=== PATIENT | female | born 1955 | race Caucasian/White ===

== ENCOUNTER 2025-07-02 12:20 | Observation (INO) | payer MEDICARE, SELFPAY ==
[2025-07-02] VITALS (9 sets, daily range): BP systolic 142–185; BP diastolic 81–138; PULSE 58–130; RESP 16–20; TEMP 36.5–36.8; O2SAT 96–98; BMI 34.8; BMI 34.0
--- NOTE | 2025-07-02 12:39 | EKG12_ITS ---
Test Reason : Blood Pressure : */* mmHG Vent. Rate : 85 BPM Atrial Rate : 264 BPM P-R Int : * ms QRS Dur : 84 ms QT Int : 390 ms P-R-T Axes : * 24 36 degrees QTcB Int : 464 ms Atrial flutter with variable A-V block Septal infarct , age undetermined Abnormal ECG Confirmed by LIONEL LOMELI, EVER ([id number]), photo editor DILIP ROBIN ([id number]) on 07/04/2025 10:32:22 AM Referred By: TB Confirmed By: EVER FLOWERS MD
[2025-07-02 13:05] LABS: Hematocrit 41.4 % (37-47); Hemoglobin 13.8 g/dL (12.0-15.0); Immature Granulocytes Count 0.020 X10^3/uL (0.0-0.0); Mean Corp Hgb Conc 33.3 g/dL (32-36); Mean Corpuscular Volume 91.4 fL (81-99); Mean Platelet Vol. 10.7 fl (6.2-12.0); NRBC Flagged by Analyzer 0 % (0-5); Platelet Count 319 K/mm3 (150-450); RBC Distribution Width CV 13.2 % (11.6-14.6); RBC Distribution Width SD 43.8 fl (35.1-43.9); Red Blood Count 4.53 M/mm3 (4.2-5.4); White Blood Count 6.5 K/mm3 (4.4-11.0)
--- NOTE | 2025-07-02 13:10 | RAD_ITS ---
PROCEDURE: CHEST PA AND LATERAL 07/02/2025 REASON FOR EXAM: A.FIB TECHNIQUE: Procedure Code: RADCXR Modality: DX Procedure: CHEST PA AND LATERAL COMPARISON: None FINDINGS: Hardware: None Heart: Normal Mediastinum: Mild aortic atherosclerosis. Lungs: Subsegmental atelectasis left lung base. No consolidation. No pleural effusion or pneumothorax. Bones: Exaggeration of the thoracic kyphosis. Mild anterior wedging mid and lower thoracic vertebral bodies with some disc space narrowing and marginal endplate spurring. RAD/Chest PA and Lateral IMPRESSION: Exaggeration of the thoracic kyphosis. Subsegmental atelectasis left lung base . Reading Location: [id number]
--- NOTE | 2025-07-02 13:10 | RAD_ITS ---
PROCEDURE: HIP, UNI W/ PELVIS 2-3 VIEWS 07/02/2025 REASON FOR EXAM: PAIN, RECENT HIP FX TECHNIQUE: Procedure Code: RAD Modality: DX Procedure: HIP, UNI W/ PELVIS 2-3 VIEWS Laterality: Left COMPARISON: None FINDINGS: Bones: 3 screws are present within the left femoral neck and head. No hardware failure or loosening seen. No new fracture seen. Joints: Mild degenerative changes lower lumbar spine, left SI joint and bilateral hip joints. Soft tissues: Surgical clips overlying the left pelvis. RAD/HIP, UNI W/ Pelvis 2-3 Views IMPRESSION: No acute abnormality. Reading Location: [id number]
[2025-07-02 13:14] LABS: Prothrombin Time (Protime)PT. 13.7 SECONDS (11.7-14.9)
[2025-07-02 13:15] LABS: Partial Thromboplast Time 25.0 Seconds (24.1-36.2)
[2025-07-02 13:26] LABS: AST(SGOT) 30 U/L (<=31); Alanine Aminotransfer ALT/SGPT 15 U/L (<=34); Albumin, Serum 4.0 g/dL (3.4-4.8); Alkaline Phosphatase 174 U/L (35-104); Anion Gap 13 (5-15); BUN 16 mg/dL (4-19); BUN/Creat Ratio 27.9 RATIO (10-20); Calcium,Total 9.8 mg/dL (7.6-11.0); Carbon Dioxide 23.1 mmol/L (21.0-32.0); Chloride 105 mmol/L (98-108); Estimated Creatinine Clearance 92.11 ml/min (50-250); Globulin 3.0 g/dL (2.2-4.2); Glucose 92 mg/dL (70-99); Potassium 4.7 mmol/L (3.3-5.1)
[2025-07-02] MEDS: 0.9% Normal Saline (1000mL) 1,000 ML 999 ML IV (13:51)
[2025-07-02 13:59] LABS: Mucous, Urine 0 SEEN /hpf (<or=2+)
[2025-07-02 14:09] LABS: Color, Urine Straw (Yellow); Glucose, Dipstick Normal (Normal); Ketone-Dipstick Negative (Negative); Leukocyte Esterase-Dipstick Negative /ul (Negative); Nitrite-Dipstick Negative (Negative); Occult Blood-Urine 10 /ul (Negative); Protein-Dipstick 15 mg/dl (Negative); Specific Gravity, Urine 1.015 (1.002-1.030)
[2025-07-02 14:12] LABS: Urine Bilirubin Dipstick 1 mg/dL (Negative)
--- NOTE | 2025-07-02 14:18 | EX.ED.GENINJ ---
HPI History of Present Illness Chief Complaint: Other, Pain/Inj Narrative Narrative: Patient is a 69-year-old female with a past medical history of atrial fibrillation status post ablation on Eliquis who presents to the emergency department with a chief complaint of left hip and pelvis pain. States that while in [place] she had a fall she broke her left femur/hip which she had surgery for as well as her left arm. She states that while in the hospital there she noted that her A-fib started acting up again. She states that she has had worsening of groin pain therefore she came here to be further evaluated. Family member notes that she may need to be admitted for potential placement in rehab. Patient denies any blood clots states that her Eliquis was stopped for 3 days prior to and after surgery but states that she has resumed it and has not missed any doses since then. PFSH PFSH Allergy/AdvReac Type Severity Reaction Status Date / Time No Known Allergies Allergy Verified 07/02/25 12:27 Social History Smoking Status: Former smoker ROS ROS ED ROS Narrative Constitutional: Denies any fevers, chills, headaches, lightness, dizziness Eyes: Denies double vision changes in vision Cardiovascular: Denies chest pain or palpitation Respiratory: Denies coughing wheezing shortness of breath Abdomen: Denies abdominal pain nausea vomit diarrhea : Denies any urinary symptoms Neurological: Denies any numbness, weakness, tingling Musculoskeletal: Complains of left hip and pelvis pain Skin: States that she has bruising from her fall that is residual EXAM Physical Exam Narrative Exam Narrative: General: Patient was lying in bed rest comfortably do not appear to be acute distress Head: Atraumatic, normocephalic Eyes: PERRL bilateral, EOMI [place], no conjunctival injection noted Neck: Soft, supple, trachea midline Cardiovascular: Patient tachycardic with an irregular irregular rhythm no murmurs gallops rubs noted Respiratory: Clear to auscultation bilaterally Abdomen: Soft, nondistended, no tenderness palpation Musculoskeletal: Patient has mild tenderness to palpation over the left hip Extremities: Radial pulses +2/4 in the right upper extremity, +4/5 strength noted in the bilateral upper and lower extremities Neurological: Patient Susan knew that she was at [facility] year is 2024 sensation grossly intact Skin: Patient has ecchymosis noted on the left side of her face as well as hematoma above her left eyebrow, surgical incision of her left hip appears to be healing well. Const Vital Signs: 07/02/25 12:23 07/02/25 12:23 07/02/25 12:37 Temperature 97.7 F L Temperature Source Temporal Pulse Rate 130 H Respiratory Rate 20 H Respiratory Effort Normal Respiratory Pattern Normal Blood Pressure 185/138 H 153/89 H Blood Pressure Mean 153 110 Pulse Ox 97 Oxygen Delivery Method Room Air 07/02/25 12:39 07/02/25 14:40 07/02/25 15:00 Temperature Temperature Source Pulse Rate 75 91 Respiratory Rate 16 19 H Respiratory Effort Respiratory Pattern Blood Pressure 154/85 H 142/88 H Blood Pressure Mean 108 106 Pulse Ox 97 97 97 Oxygen Delivery Method Room Air Room Air Room Air MDM MDM MDM Narrative Medical decision making narrative: Patient is a 69-year-old female who presented to the emergency department with a chief complaint of left hip pain and pelvis pain. On the differential diagnosis includes but not limited to pubic rami fracture, hip dislocation, periprosthetic fracture, pneumonia, PE although low suspicion for this as she is anticoagulated on Eliquis. Once workup is obtained reviewed she will be reevaluated. Patient is a CBC reviewed and showed no evidence leukocytosis white blood count was 6.5, he was 13.8, plate count 319. Patient INR normal at 1, PT 13.7. Patient sodium was 141, potassium was 4.7, creatinine 0.57. Patient lactic acid normal at 1.2, AST and ALT were 30 and 15 respectively. Patient's troponin was 14 with a delta troponin pending her EKG showed atrial flutter with variable block with a rate of 85 bpm. Patient's urinalysis reviewed and showed no evidence of infection. Patient's x-ray of her hip and pelvis reviewed by myself by radiology which showed no acute abnormalities noted. Patient chest x-ray reviewed by myself and by radiology which showed subsegmental atelectasis left lung base exaggeration of thoracic kyphosis. At 3:48 PM there is still no identifiable source infection therefore did not believe she warrants any antibiotics at this point time. Patient is requesting something for pain should be given Mccloud and Zofran. At this point time will discuss case with hospitalist for admission for PT/OT evaluation and possible placement for rehab. Patient's troponin came back it was normal at 14 with delta pending. Discussed this case with hospitalist Dr. Clay who accept patient for admission for PT OT evaluation and likely placement. Patient is agreeable to plan all questions were answered. Lab Data Labs: Laboratory Results - last 24 hr 07/02/25 07/02/25 12:55 13:50 WBC 6.5 RBC 4.53 Hgb 13.8 Hct 41.4 MCV 91.4 MCH 30.5 MCHC 33.3 RDW Std Deviation 43.8 RDW Coeff of Roseline 13.2 Plt Count 319 MPV 10.7 Immature Gran % (Auto) 0.300 Neut % (Auto) 66.1 Lymph % (Auto) 23.9 [place] % (Auto) 7.0 Eos % (Auto) 2.2 Baso % (Auto) 0.5 Absolute Neuts (auto) 4.3 Absolute Lymphs (auto) 1.54 Nucleated RBC % 0 PT 13.7 INR 1.0 APTT 25.0 Sodium 141 Potassium 4.7 Chloride 105 Carbon Dioxide 23.1 Anion Gap 13 BUN 16 Creatinine 0.57 L Estim Creat Clear Calc 92.11 Est GFR (MDRD) Non-Af 97 BUN/Creatinine Ratio 27.9 H Glucose 92 Lactic Acid 1.2 Calcium 9.8 Total Bilirubin 0.53 AST 30 ALT 15 Alkaline Phosphatase 174 H Troponin T High Sens 14 Total Protein 7.0 Albumin 4.0 Globulin 3.0 Albumin/Globulin Ratio 1.3 Urine Color Straw Urine Clarity Clear Urine pH 6.0 Ur Specific [place] 1.015 Urine Protein 15 H Urine Glucose (UA) Normal Urine Ketones Negative Urine Occult Blood 10 H Urine Nitrite Negative Urine Bilirubin 1 H Urine Urobilinogen Normal Ur Leukocyte Esterase Negative Urine RBC 0-5 SEEN Urine WBC 0-5 SEEN Ur Squamous Epith Cells 0-5 SEEN Urine Bacteria 0 SEEN Urine Mucus 0 SEEN Radiography Diagnostic Testing: Clinical Impression(s) from Imaging Studies Chest X-Ray 07/02/25 13:10 IMPRESSION: Exaggeration of the thoracic kyphosis. Subsegmental atelectasis left lung base. Reading Location: [id number] Hip/Pelvis X-Ray 07/02/25 13:10 IMPRESSION: No acute abnormality. Reading Location: [id number] Discharge Plan Dx/Rx/DC Orders Clinical Impression: Fall, Atrial fibrillation, Closed fracture of left hip, Distal radius fracture, left Disposition Disposition: Acute Care Hospital [facility]
[2025-07-02 14:40] LABS: Red Blood Cells-Urine 0-5 SEEN /hpf (0-5); Squamous Epithelial Cells - UA 0-5 SEEN /hpf (5-10)
[2025-07-02] MEDS: HYDROcodone Bitartrate/Apap 5/325 Tablet PO (15:26)
[2025-07-02 15:44] LABS: Troponin T High Sensitivity 14 ng/L (<=14)
[2025-07-02 16:09] LABS: Troponin T High Sens 2 HR 15 ng/L (<=14)
--- NOTE | 2025-07-02 16:22 | HP.PCM.HOS_ITS ---
HPI - General General Date of Admission: 07/02/25 Date of Service: 07/02/25 Chief Complaint: Left hip pain HPI Narrative ELENO KENNY, is a 69-year-old female history of A-fib status post ablation on Eliquis who presented to [facility] ED 07/02/2025 with left hip and pelvis pain. While in [place] she fell and broke her left femur/hip and had surgery for that. While in the hospital she had A-fib again as well. Patient now has had worsening of groin pain so she came to the ED to be evaluated. Family concerned that she needs admission for potential placement in rehab. In ED temp 97.7, heart rate initially 130 with repeat 75, blood pressure 185/138 and again with repeat down to 154/85, respiratory rate 20 pulse ox 97% on room air. CBC without any overt abnormalities, CMP with a BUN of 16, creatinine 0.57 and alk phos of 174. UA not suggestive of UTI, lactic acid normal. Chest x-ray with exaggeration of thoracic kyphosis and subsegmental atelectasis of left lung base. Hip and pelvis x-ray with no acute abnormalities. Given patient's pain and debility status post left arm and hip break hospitalist contacted for admission. Patient evaluated at bedside and reports that she fell in a restaurant in [place] and broke her left arm in 2 places as well as her femur, she had surgery on her femur 2 weeks ago tomorrow and was allowed to come home Monday because family had arrived and she wanted to be in her home state for further care. Patient arrived home yesterday and is brought here by family for placement. Reports having pain in her hip, more so anterior groin area, arm hurts as well. No headache or changes in vision. No chest pain or shortness of breath, bowels have been staying fairly regular despite taking as needed pain medication. PFSH Allergy/AdvReac Type Severity Reaction Status Date / Time No Known Allergies Allergy Verified 07/02/25 12:27 Social History Smoking Status: Former smoker ROS ROS Narrative General: Denies fever/chills HENT: Denies headache, denies stuffy nose, denies sore throat EYES: Denies acute changes in vision Resp: Denies cough, denies shortness of breath Cardiac: Denies chest pain GI: Denies abdominal pain, denies changes in bowel, denies nausea/vomiting : Denies changes in urination Extremity: Denies new swelling MSK: Pain in left anterior groin and arm Neuro: Denies any numbness/tingling Heme: Patient has residual bruising on face and forehead Skin: Denies rashes Psychiatric: No complaints voiced Vital Signs Vital Signs Vital Signs: 07/02/25 12:23 07/02/25 12:23 07/02/25 12:37 Temperature 97.7 F L Temperature Source Temporal Pulse Rate 130 H Respiratory Rate 20 H Respiratory Effort Normal Respiratory Pattern Normal Blood Pressure 185/138 H 153/89 H Blood Pressure Mean 153 110 Pulse Ox 97 Oxygen Delivery Method Room Air 07/02/25 12:39 07/02/25 14:40 07/02/25 15:00 Temperature Temperature Source Pulse Rate 75 91 Respiratory Rate 16 19 H Respiratory Effort Respiratory Pattern Blood Pressure 154/85 H 142/88 H Blood Pressure Mean 108 106 Pulse Ox 97 97 97 Oxygen Delivery Method Room Air Room Air Room Air Weight Weight: 116.5 kg Body Mass Index (BMI) 34.8 Physical Exam Narrative General: Alert, oriented, no apparent distress HEENT: Patient with healing bruising and protuberant area on left side of forehead Eyes: extraocular movements grossly intact Neck: Supple Respiratory: Clear to auscultation bilaterally, normal respiratory effort Cardiovascular: Regular rate and rhythm GI: Soft, nontender, nondistended Extremities: No edema Musculoskeletal: Moving all extremities Neuro: No overt focal neurological deficits Skin: No rashes appreciated Psych: Cooperative Results Lab / Micro Data 07/02/25 12:55 07/02/25 12:55 Labs: Laboratory Results - last 24 hr 07/02/25 12:55: WBC 6.5, RBC 4.53, Hgb 13.8, Hct 41.4, MCV 91.4, MCH 30.5, MCHC 33.3, RDW Std Deviation 43.8, RDW Coeff of Roseline 13.2, Plt Count 319, MPV 10.7, Immature Gran % (Auto) 0.300, Neut % (Auto) 66.1, Lymph % (Auto) 23.9, [place] % (Auto) 7.0, Eos % (Auto) 2.2, Baso % (Auto) 0.5, Absolute Neuts (auto) 4.3, Absolute Lymphs (auto) 1.54, Nucleated RBC % 0, PT 13.7, INR 1.0, APTT 25.0, Sodium 141, Potassium 4.7, Chloride 105, Carbon Dioxide 23.1, Anion Gap 13, BUN 16, Creatinine 0.57 L, Estim Creat Clear Calc 92.11, Est GFR (MDRD) Non-Af 97, B UN/Creatinine Ratio 27.9 H, Glucose 92, Lactic Acid 1.2, Calcium 9.8, Total Bilirubin 0.53, AST 30, ALT 15, Alkaline Phosphatase 174 H, Troponin T High Sens 14, Total Protein 7.0, Albumin 4.0, Globulin 3.0, Albumin/Globulin Ratio 1.3 07/02/25 13:50: Urine Color Straw, Urine Clarity Clear, Urine pH 6.0, Ur Specific [place] 1.015, Urine Protein 15 H, Urine Glucose (UA) Normal, Urine Ketones Negative, Urine Occult Blood 10 H, Urine Nitrite Negative, Urine Bilirubin 1 H, Urine Urobilinogen Normal, Ur Leukocyte Esterase Negative, Urine RBC 0-5 SEEN, Urine WBC 0-5 SEEN, Ur Squamous Epith Cells 0-5 SEEN, Urine Bacteria 0 SEEN, Urine Mucus 0 SEEN 07/02/25 15:21: Troponin T Hi Sens 2 Hr 15 H Imaging Radiology Impression Chest X-Ray 07/02/25 13:10 IMPRESSION: Exaggeration of the thoracic kyphosis. Subsegmental atelectasis left lung base. Reading Location: [facility] Hip/Pelvis X-Ray 07/02/25 13:10 IMPRESSION: No acute abnormality. Reading Location: [id number] Assessment & Plan Assessment/Plan (1) Closed fracture of left hip: (2) Distal radius fracture, left: (3) Atrial fibrillation: PLAN: Plan # Left hip pain and debility -Hospitalist contacted for admission for possible placement -PT/OT -Case management consult -Supportive care - Will need info to follow-up with Ortho on discharge # Left arm fracture - Continue supportive care - PT/OT # History of A-fib -Patient remains on Eliquis and has not missed any doses -Will resume home metoprolol and diltiazem once dose has been confirmed - Heart rate 80s to 90s and patient is in A-fib in the ED - Had elevated heart rate when she came in which improved after pain medication and did not require any rate limiting agents, suspect that this was due to the pain response in the RVR - Do not think patient needs telemetry or any additional action #DVT ppx: Continue Fabbyquis Unique Clay MD Time spent in the patient's overall evaluation,decision-making process, review of diagnostic data, adjustment of management, discussion with other providers, nursing nursing and ancillary staff involved in patient's care documentation, 56 Minutes Charges/Coding Visit Charges Inpatient E&M: 27373 Init Hosp L2
--- NOTE | 2025-07-02 16:37 | ED.RN ---
daughter sending over a med list she has for pt after she is done at the grocery store
[2025-07-02 18:59] LABS: Troponin T High Sens 4 HR 13 ng/L (<=14)
[2025-07-02] MEDS: Metoprolol(XL)Succ 25 MG Tablet 75 MG PO (20:44)
[2025-07-02] MEDS: Senna/Docusate Sodium 1 Tablet 2 TABLET PO (20:46)
[2025-07-02] MEDS: Tolterodine Tartrate 4 MG CAP.SA PO (20:46)
[2025-07-03 02:15] VITALS: BP 142/68; PULSE 82; RESP 16; TEMP 36.6; O2SAT 95
[2025-07-03 06:06] LABS: Hematocrit 35.2 % (37-47); Hemoglobin 11.5 g/dL (12.0-15.0); Immature Granulocytes Count 0.000 X10^3/uL (0.0-0.0); Mean Corp Hgb Conc 32.7 g/dL (32-36); Mean Corpuscular Volume 92.6 fL (81-99); Mean Platelet Vol. 10.7 fl (6.2-12.0); NRBC Flagged by Analyzer 0 % (0-5); Platelet Count 262 K/mm3 (150-450); RBC Distribution Width CV 13.2 % (11.6-14.6); RBC Distribution Width SD 44.1 fl (35.1-43.9); Red Blood Count 3.80 M/mm3 (4.2-5.4); White Blood Count 4.4 K/mm3 (4.4-11.0)
[2025-07-03 07:04] LABS: Anion Gap 12 (5-15); BUN 14 mg/dL (4-19); BUN/Creat Ratio 19.6 RATIO (10-20); Calcium,Total 9.3 mg/dL (7.6-11.0); Carbon Dioxide 24.4 mmol/L (21.0-32.0); Chloride 107 mmol/L (98-108); Estimated Creatinine Clearance 90.98 ml/min (50-250); Glucose 88 mg/dL (70-99); Potassium 4.3 mmol/L (3.3-5.1)
--- NOTE | 2025-07-03 07:25 | PN.HOSP_ITS ---
Reason for Visit Chief Complaint: Left hip pain Objective Data Objective Data Vital Signs: Vital Signs Temp Pulse Resp BP Pulse Ox O2 Del Method 98 F 73 16 147/86 H 98 Room Air 07/02/25 20:30 07/02/25 20:44 07/02/25 20:30 07/02/25 20:44 07/02/25 20:30 07/02/25 20:30 Oxygen Delivery Method Room Air Weight: 250 lb 11.2 oz Body Mass Index (BMI) 34.0 Intake & Output: Intake and Output for Last 24 Hours 07/01/25 07/02/25 07/03/25 23:59 23:59 23:59 Intake Total 1000 / 1000 Balance 1000 / 1000 Lab / Micro Data 07/03/25 05:11 07/03/25 05:11 Labs: Laboratory Results - last 24 hr 07/02/25 12:55: WBC 6.5, RBC 4.53, Hgb 13.8, Hct 41.4, MCV 91.4, MCH 30.5, MCHC 33.3, RDW Std Deviation 43.8, RDW Coeff of Roseline 13.2, Plt Count 319, MPV 10.7, Immature Gran % (Auto) 0.300, Neut % (Auto) 66.1, Lymph % (Auto) 23.9, [place] % (Auto) 7.0, Eos % (Auto) 2.2, Baso % (Auto) 0.5, Absolute Neuts (auto) 4.3, Absolute Lymphs (auto) 1.54, Nucleated RBC % 0, PT 13.7, INR 1.0, APTT 25.0, Sodium 141, Potassium 4.7, Chloride 105, Carbon Dioxide 23.1, Anion Gap 13, BUN 16, Creatinine 0.57 L, Estim Creat Clear Calc 92.11, Est GFR (MDRD) Non-Af 97, B UN/Creatinine Ratio 27.9 H, Glucose 92, Lactic Acid 1.2, Calcium 9.8, Total Bilirubin 0.53, AST 30, ALT 15, Alkaline Phosphatase 174 H, Troponin T High Sens 14, Total Protein 7.0, Albumin 4.0, Globulin 3.0, Albumin/Globulin Ratio 1.3 07/02/25 13:50: Urine Color Straw, Urine Clarity Clear, Urine pH 6.0, Ur Specific [place] 1.015, Urine Protein 15 H, Urine Glucose (UA) Normal, Urine Ketones Negative, Urine Occult Blood 10 H, Urine Nitrite Negative, Urine Bilirubin 1 H, Urine Urobilinogen Normal, Ur Leukocyte Esterase Negative, Urine RBC 0-5 SEEN, Urine WBC 0-5 SEEN, Ur Squamous Epith Cells 0-5 SEEN, Urine Bacteria 0 SEEN, Urine Mucus 0 SEEN 07/02/25 15:21: Troponin T Hi Sens 2 Hr 15 H 07/02/25 17:19: Troponin T Hi Sens 4Hr 13 07/03/25 05:11: WBC 4.4, RBC 3.80 L, Hgb 11.5 L, Hct 35.2 L, MCV 92.6, MCH 30.3, MCHC 32.7, RDW Std Deviation 44.1 H, RDW Coeff of Roseline 13.2, Plt Count 262, MPV 10.7, Immature Gran % (Auto) 0.000, Neut % (Auto) 44.5 L, Lymph % (Auto) 39.7, M my % (Auto) 10.3 H, Eos % (Auto) 4.6, Baso % (Auto) 0.9, Absolute Neuts (auto) 1.9 L, Absolute Lymphs (auto) 1.73, Nucleated RBC % 0, Sodium 143, Potassium 4.3, Chloride 107, Carbon Dioxide 24.4, Anion Gap 12, BUN 14, Creatinine 0.69 L, Estim Creat Clear Calc 90.98, Est GFR (MDRD) Non-Af 93, BUN/Creatinine Ratio 19.6, Glucose 88, Calcium 9.3 Radiography Diagnostic Testing: Radiology Impression Chest X-Ray 07/02/25 13:10 IMPRESSION: Exaggeration of the thoracic kyphosis. Subsegmental atelectasis left lung base. Reading Location: [facility] Hip/Pelvis X-Ray 07/02/25 13:10 IMPRESSION: No acute abnormality. Reading Location: [facility] Physical Exam Narrative Seen and examined. She has left hip fracture and surgery done in [place] where she fell down and broke her left hip. 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 Oral: No Gingival or Mucosal Lesions/ Ulcerations Neck: Supple, No JVD, Negative Carotid Bruits Chest wall/Lungs: Air entry diminished in bilateral lung bases. No crepitation/rhonchi Cardiovascular: Regular rate and rhythm, sinus rhythm no M/G/R Abdomen: Bowel Sounds Present, Soft, Non Tender, Non-Distended : No dysuria. No renal angle tenderness. No suprapubic tenderness. Extremities: No edema, Capillary Refill Less than 3 Seconds Skin: No rashes, No breakdown Musculoskeletal: Left hip surgical dressing is dry. No hematoma. Mild postop tenderness. ROM restricted over left hip. Left forearm has bandage from elbow to wrist. Neurological: Cranial nerves II-XII grossly intact, DTR 2+/4. No acute focal neurological deficit. Psych/Mental Status: Normal Affect, Appropriate. Assessment & Plan Assessment/Plan (1) Closed fracture of left hip: (2) Distal radius fracture, left: (3) Atrial fibrillation: PLAN: Plan 68-year-old female came to ED with chief complaint of left hip and pelvis pain. She fell down and broke her left femur/hip for which she had surgery and also left arm fracture. Patient denies any history of DVT/blood clot and on Eliquis. # Acute/subacute left hip pain and debility due to recent left hip fracture status post screw fixation. Hip and pelvis x-ray reviewed shows 3 screws present within left femoral neck and head. No hardware loosening or failure. No new fractures seen patient is being admitted to medicine floor for rehab -PT/OT -Case management consult -Supportive care - Bowel and bladder care. Denies dysuria. Due to follow-up orthopedic surgeon after discharge # Left forearm fracture: Left forearm within cast - Continue supportive care - PT/OT # History of A-fib -Patient remains on Eliquis and has not missed any doses. Home medication does not show Eliquis but ordered -resume home metoprolol and diltiazem once dose has been confirmed - Heart rate 80s to 90s and patient is in A-fib in the ED, but seems sinus rhythm on the floor. Patient had tachycardia in ED probably due to pain which was controlled with pain medication #DVT ppx: On Eliquis 5 mg twice daily Charges/Coding Visit Charges Inpatient E&M: 54494 Subs Hosp L2
[2025-07-03 08:00] VITALS: BP 128/99; PULSE 119; RESP 16; TEMP 36.7; O2SAT 95
[2025-07-03 09:00] VITALS: PULSE 119
[2025-07-03] MEDS: Senna/Docusate Sodium 1 Tablet 2 TABLET PO (09:00)
[2025-07-03] MEDS: Metoprolol(XL)Succ 25 MG Tablet 75 MG PO ×2 (09:00→21:30)
[2025-07-03] MEDS: 0.9% Saline Lock 10 ML Syringe IV ×3 (09:13→21:33)
[2025-07-03] MEDS: APIXABAN 5 MG TABLET PO ×2 (10:46→21:31)
--- NOTE | 2025-07-03 10:51 | CASEMGMT ---
Discharge Planning A list of?SNF providers including quality and resource use data and consistent with the patient's preferred geographic region, medical needs, and insurance network was created in [facility] Guide.? This list was provided to the SW. Ana Laura Whitman Discharge Planning Asst.
--- NOTE | 2025-07-03 11:28 | CASEMGMT ---
Addendum entered by Ana Laura Whitman 07/03/25 15:21: Pt has been accepted by another snf. [facility] asked to cancel referral. Ana Laura Whitman DC Planning Asst. Original Note: Discharge Planning Referral sent to [facility]. Ana Laura Whitman DC Planning Asst.
--- NOTE | 2025-07-03 11:34 | CASEMGMT ---
Addendum entered by Daisy Villagran 07/03/25 15:07: SW notified TCU able to accept; precert started. TRICE updated pt and pt dtr. Plan: TCU; pend precert RENAE Rodriguez Addendum entered by Daisy Villagran 07/03/25 14:16: SW received message from dtr- pt and dtr spoke and would like TCU to be FOC, [facility] alternate. SW updated DCA. SW completed referral to TCU. TRICE remains available to follow. RENAE Rodriguez Original Note: Social Work- SW met with pt to verify directives and discuss discharge planning. Pt reports dtr January as agent; documents requested for scan into chart. A list of SNF providers including quality and resource use data and consistent with the patient?s preferred geographic region, medical needs, and insurance network were provided from the [facility] Guide. Pt selected [facility] as FOC. TCU is alternate. TRICE notified DCA of referral request. TRICE remains available to follow. RENAE Rodriguez
[2025-07-03] MEDS: 0.9% Normal Saline (250mL Bag) 250 ML 15 ML IV (11:53)
[2025-07-03] MEDS: Ampicillin/Sulbactam 3 GM in 0.9% Normal Saline (100mL MB+) 100 ML IV ×2 (11:53→18:03)
[2025-07-03 14:00] VITALS: BP 127/87; PULSE 64; RESP 16; TEMP 36.7; O2SAT 95
--- NOTE | 2025-07-03 15:01 | CHAPLAIN ---
Type of Pastoral Visit _x__ Initial Visit ___ Follow-up Visit ___ On-call Visit ___ General Patient Visit ___ Spiritual Assessment ___ Family Conference ___ Bereavement ___ Rapid Response ___ Code Blue ___ Other (describe below) Pastoral Care Referral From _x__ Patient ___ Family ___ Nurse ___ Physician ___ Tank Truck Milk Receiver ___ Stone Operator ___ Other (describe below) Sacrament/Intervention _x__ Active listening ___ Anointing ___ Sabianism ___ Bereavement ___ Communion _x__ Jo Ann exploration ___ _x__ Life review _x__ Prayer ___ Reconciliation ___ Sacrament of Sick _x__ Supportive presence ___ Wedding ___ Other (describe below) Pastoral Comments the patient was very eager to meet with and talk about spiritual matters and her current life situation; pt had a significant fall with injuries but also focuses on the spiritual meaning and opportunity of learning more of God in this time; pt discusses personal issues with her home life and seeks prayer and input; pt has ability to articulate well and define her beliefs and her questions; presence and prayer given
--- NOTE | 2025-07-03 15:21 | CASEMGMT ---
MINER Met with patient to complete MINER form. MINER form and its content were verbally explained and patient's questions were answered to the best of my ability.? Patient voiced understanding and signed MINER form.? Patient provided a copy of signed MINER form and original placed in patient's chart.? Patient had no further questions. Ana Laura Whitman, Discharge Planning Asst
--- NOTE | 2025-07-03 15:25 | RAD_ITS ---
PROCEDURE: WRIST MIN 3 VIEWS 07/03/2025 REASON FOR EXAM: FRACTURAE TECHNIQUE: Procedure Code: RADWR Modality: DX Procedure: WRIST MIN 3 VIEWS Laterality: Left COMPARISON: None FINDINGS: Cast in place. Distal ulna fracture suspected. Degenerative changes in the triscaphe joint. Major of the imaged wrist enhance negative. RAD/Wrist min 3 Views IMPRESSION: Distal ulna fracture Reading Location: [id number]
--- NOTE | 2025-07-03 15:25 | RAD_ITS ---
PROCEDURE: FOREARM 2 VIEWS 07/03/2025 REASON FOR EXAM: FRACTURE TECHNIQUE: Procedure Code: RADFA Modality: DX Procedure: FOREARM 2 VIEWS Laterality: Left COMPARISON: None FINDINGS: Bones: Displaced fracture deformity of distal ulna with overlying cast. Joints: Degenerative changes of visualized carpometacarpal and metacarpophalangeal joints. Soft tissues: Soft tissue swelling overlying fracture segments. Other: RAD/Forearm 2 Views IMPRESSION: Displaced fracture deformity of distal ulna with angulation and overlying cast. Soft tissue swelling overlying fracture segments. Reading Location: [id number]
--- NOTE | 2025-07-03 17:05 | CONS.ORTHO ---
HPI Consult Data Date of Consult: 07/03/25 HPI Narrative HPI Narrative: ELENO KENNY, is a 69 F who presents with left hip and left wrist pain. She was vacationing in [place] when she had a fall while dancing. The fall was on June 16. She was found to have left hip fracture which was treated with surgery in [place] on June 20. She underwent left hip pinning and stayed in the hospital for a week and then was transported here back home to [place]. She came to the emergency room because she was not able to do activities of daily living and is admitted for planned rehab transfer. Patient reports that the pain in the left hip and groin is getting better. She was asked to do toe-touch weightbearing. She denies any increased pain with toe-touch weightbearing. She was placed in left thumb spica cast for the left forearm and wrist injury which has not been changed. She does have some pain around the wrist. Cast appears loose. She denies any other areas of pain. [place] at the left hip have not yet been removed. Patient has A-fib and is on Eliquis. [facility] Medical History (Updated 07/03/25 @ 17:[address] Fred Gould MD) Anxiety Former smoker CPAP (continuous positive airway pressure) dependence Sleep apnea Hypertension Atrial fibrillation Home Medications ?Medication ?Instructions ?Recorded ?Last Taken ?Type Monopril 75 mg PO DAILY 07/02/25 Unknown History alprazolam 0.25 mg tablet 0.25 mg PO BID 07/02/25 Unknown History atorvastatin 40 mg tablet 40 mg PO DAILY 07/02/25 Unknown History diltiazem HCl 120 mg 120 mg PO DAILY 07/02/25 Unknown History capsule,extended release 24 hr (Cartia XT) duloxetine 60 mg capsule,delayed 60 mg PO .HS 07/02/25 Unknown History release etodolac 500 mg tablet 500 mg PO BID PRN pain 07/02/25 Unknown History fosinopril 10 mg tablet mg PO 07/02/25 Unknown History gabapentin 100 mg capsule 100 mg PO TID 07/02/25 Unknown History metoprolol succinate 25 mg 75 mg PO BID heart rate 07/02/25 Unknown History tablet,extended release 24 hr oxybutynin chloride 15 mg 15 mg PO .at hs 07/02/25 Unknown History tablet,extended release 24 hr trazodone 100 mg tablet 200 mg PO QHS 07/02/25 Unknown History Allergy/AdvReac Type Severity Reaction Status Date / Time No Known Allergies Allergy Verified 07/02/25 12:27 Social History Smoking Status: Former smoker Vital Signs Vital Signs Vital Signs: 07/02/25 17:10 07/02/25 20:20 07/02/25 20:30 Temperature 98 F Temperature Source Temporal Pulse Rate 73 Respiratory Rate 16 Respiratory Effort Normal Normal Non-Labored Respiratory Depth Normal Normal Respiratory Pattern Normal Blood Pressure 147/86 H Blood Pressure Mean 106 Blood Pressure Source Monitor Blood Pressure Position Semi-Fowlers Blood Pressure Location Right Arm Pulse Ox 98 Oxygen Delivery Method Room Air Room Air Room Air 07/02/25 20:44 07/03/25 02:15 07/03/25 08:00 Temperature 97.9 F 98.0 F Temperature Source Temporal Oral Pulse Rate 73 82 119 H Respiratory Rate 16 16 Respiratory Effort Respiratory Depth Respiratory Pattern Blood Pressure 147/86 H 142/68 H 128/99 H Blood Pressure Mean 92 108 Blood Pressure Source Monitor Monitor Blood Pressure Position Semi-Fowlers Semi-Fowlers Blood Pressure Location Right Arm Right Arm Pulse Ox 95 95 Oxygen Delivery Method Room Air Room Air 07/03/25 09:00 07/03/25 14:00 Temperature 98.0 F Temperature Source Oral Pulse Rate 119 H 64 Respiratory Rate 16 Respiratory Effort Respiratory Depth Respiratory Pattern Blood Pressure 127/87 H Blood Pressure Mean 100 Blood Pressure Source Monitor Blood Pressure Position Semi-Fowlers Blood Pressure Location Right Arm Pulse Ox 95 Oxygen Delivery Method Room Air Weight Weight: 250 lb 11.2 oz Body Mass Index (BMI) 34.0 Physical Exam Narrative Exam of the left hip shows no pain or tenderness. [place] are seen. No wound discharge. These appear dry. ABD pad noticed but completely dry. Distal neurovascular exam is intact. Patient is able to actively flex hip and extend knee. Examination the left upper extremity shows left short arm thumb spica cast. This is loose proximally, but well-fitting distally. Cap refill is good in thumb and all fingers. Lab / Micro Data 07/03/25 05:11 07/03/25 05:11 Labs: Laboratory Results - last 24 hr 07/02/25 17:19: Troponin T Hi Sens 4Hr 13 07/03/25 05:11: WBC 4.4, RBC 3.80 L, Hgb 11.5 L, Hct 35.2 L, MCV 92.6, MCH 30.3, MCHC 32.7, RDW Std Deviation 44.1 H, RDW Coeff of Roseline 13.2, Plt Count 262, MPV 10.7, Immature Gran % (Auto) 0.000, Neut % (Auto) 44.5 L, Lymph % (Auto) 39.7, Phelps % (Auto) 10.3 H, Eos % (Auto) 4.6, Baso % (Auto) 0.9, Absolute Neuts (auto) 1.9 L, Absolute Lymphs (auto) 1.73, Nucleated RBC % 0, Sodium 143, Potassium 4.3, Chloride 107, Carbon Dioxide 24.4, Anion Gap 12, BUN 14, Creatinine 0.69 L, Estim Creat Clear Calc 90.98, Est GFR (MDRD) Non-Af 93, BUN/Creatinine Ratio 19.6, Glucose 88, Calcium 9.3 Micro: Microbiology 07/02/25 19:49 Blood Culture (Wb) - Anticubital Left Bacteria Detection (PCR) - Final 07/02/25 19:49 Blood Culture (Wb) - Anticubital Left Blood Culture - Preliminary Imaging Radiology Impression Forearm X-Ray 07/03/25 15:25 IMPRESSION: Displaced fracture deformity of distal ulna with angulation and overlying cast. Soft tissue swelling overlying fracture segments. Reading Location: [id number] Wrist X-Ray 07/03/25 15:25 IMPRESSION: Distal ulna fracture Reading Location: [id number] Assessment & Plan Assessment/Plan (1) Closed left forearm fracture: QUALIFIERS: Encounter type: initial encounter Qualified Code(s): S52.92XA - Unspecified fracture of left forearm, initial encounter for closed fracture (2) Status post hip surgery: PLAN: Plan I evaluated left hip x-rays done yesterday, and ordered wrist and forearm x-rays today. Left hip shows percutaneous pinning with 3 partially-threaded cancellous screws. Fracture line is not visible indicating possible undisplaced fracture that was treated. X-rays of the left forearm and wrist show distal radius fracture with dorsal subluxation of the lunate and displaced distal third ulnar shaft fracture. No preoperative or injury x-rays at the time of injury from [place] are available for me to review. Patient is 2 weeks status post left hip percutaneous pinning for likely undisplaced hip fracture. She denies any significant pain. She is able to actively move the hip. At this point it may be reasonable for her to advance to weightbearing as tolerated in the left lower extremity. Guillermo can be removed as of tomorrow when she will be 2 weeks from surgery. Her left forearm fractures especially the distal radius as well as ulna fractures seem to be displaced. The short arm thumb spica cast is likely not been sufficient for her to hold the reduction. It is unclear as to what the initial displacement was and whether close reduction was applied or not. At this point it may be reasonable to obtain a hand surgery consultation as an outpatient within the next week for possible consideration of surgery in the form of open reduction internal fixation for the distal radius and distal third ulna fractures in the left upper extremity. Until then limb elevation and continued immobilization may be reasonable. Patient will follow-up for the hip fracture as an outpatient with us in [place], but will likely need consult to a hand surgeon likely in [place] for consideration of surgery. Please reach out with questions and concerns. Charges/Coding Visit Charges Inpatient E&M: 05062 Init Hosp L3
[2025-07-03 20:00] VITALS: BP 138/90; PULSE 65; RESP 16; TEMP 36.6; O2SAT 96
[2025-07-03 21:30] VITALS: BP 138/90; PULSE 65
[2025-07-03] MEDS: Tolterodine Tartrate 4 MG CAP.SA PO (21:31)
[2025-07-04] MEDS: 0.9% Saline Lock 10 ML Syringe IV ×3 (00:05→08:35)
[2025-07-04] MEDS: Ampicillin/Sulbactam 3 GM in 0.9% Normal Saline (100mL MB+) 100 ML IV ×3 (00:05→12:07)
[2025-07-04 02:00] VITALS: BP 150/89; PULSE 61; RESP 16; TEMP 36.6; O2SAT 98
[2025-07-04 04:44] LABS: Hematocrit 35.5 % (37-47); Hemoglobin 11.6 g/dL (12.0-15.0); Immature Granulocytes Count 0.010 X10^3/uL (0.0-0.0); Mean Corp Hgb Conc 32.7 g/dL (32-36); Mean Corpuscular Volume 91.7 fL (81-99); Mean Platelet Vol. 10.7 fl (6.2-12.0); NRBC Flagged by Analyzer 0 % (0-5); Platelet Count 265 K/mm3 (150-450); RBC Distribution Width CV 13.2 % (11.6-14.6); RBC Distribution Width SD 44.3 fl (35.1-43.9); Red Blood Count 3.87 M/mm3 (4.2-5.4); White Blood Count 4.3 K/mm3 (4.4-11.0)
[2025-07-04 05:29] LABS: Anion Gap 12 (5-15); BUN 14 mg/dL (4-19); BUN/Creat Ratio 24.2 RATIO (10-20); Calcium,Total 9.0 mg/dL (7.6-11.0); Carbon Dioxide 22.4 mmol/L (21.0-32.0); Chloride 107 mmol/L (98-108); Estimated Creatinine Clearance 90.98 ml/min (50-250); Glucose 95 mg/dL (70-99); Potassium 3.9 mmol/L (3.3-5.1)
[2025-07-04 08:25] VITALS: BP 140/83; PULSE 63; RESP 17; TEMP 36.3; O2SAT 96
[2025-07-04 08:30] VITALS: PULSE 62
[2025-07-04] MEDS: APIXABAN 5 MG TABLET PO (08:30)
[2025-07-04] MEDS: Metoprolol(XL)Succ 25 MG Tablet 75 MG PO (08:30)
[2025-07-04] MEDS: Senna/Docusate Sodium 1 Tablet 2 TABLET PO (08:30)
--- NOTE | 2025-07-04 11:24 | PCM.TXEXTCAR ---
Diet Diet Order/Speech Therapy: INPATIENT Hospital Diet / Speech Therapy Order(s) 07/02/25 16:54 Diet: Regular - General Food consistency:: Regular Liquid Consistency:: Regular/Thin DC O2, CPAP, BIPAP needs Home O2 Discharge instructions: No Wound(s) left elbow: Wound Type: Laceration left hip: Wound Type: Surgical Incision left forearm: Wound Type: fall rt kothari: Wound Type: Abrasion Problem/Diagnosis (1) Closed left forearm fracture: Status: Acute Code(s): S52.92XA - Unspecified fracture of left forearm, initial encounter for closed fracture (2) Status post hip surgery: Status: Acute Code(s): Z98.890 - Other specified postprocedural states Plan 68-year-old female came to ED with chief complaint of left hip and pelvis pain. She fell down and broke her left femur/hip for which she had surgery and also left arm fracture. Patient denies any history of DVT/blood clot and on Eliquis. # Acute/subacute left hip pain and debility due to recent left hip fracture status post screw fixation. Hip and pelvis x-ray reviewed shows 3 screws present within left femoral neck and head. No hardware loosening or failure. No new fractures seen patient is being admitted to medicine floor for rehab -PT/OT -Case management consult -Supportive care - Bowel and bladder care. Denies dysuria. Due to follow-up orthopedic surgeon after discharge # Left forearm fracture: Left forearm within cast - Continue supportive care - PT/OT # History of A-fib -Patient remains on Eliquis and has not missed any doses. Home medication does not show Eliquis but ordered -resume home metoprolol and diltiazem once dose has been confirmed - Heart rate 80s to 90s and patient is in A-fib in the ED, but seems sinus rhythm on the floor. Patient had tachycardia in ED probably due to pain which was controlled with pain medication #DVT ppx: On Eliquis 5 mg twice daily Allergies/Procedures Done in Hospital Allergies No Known Allergies Allergy (Verified 07/02/25 12:27) Type of Care/Length of Stay Estimated LOS: Convalescent Care Less Than 30 days Type of Care Needed: Skilled Rehab Potential: Good Prognosis: Good Additional Orders/Day of Discharge Day of Discharge: 07/04/25 Discharge Plan Admission Admit Date/Time: 07/02/25 16:22 Primary Reason for Your Visit: Left hip status post ORIF. Left distal ulna displaced fracture Attending Provider: Doe Alvarez Primary Care Provider: ADDISON HENRY Consulting Providers: Unique Clay; Fred Gould Discharge Orders/Prescriptions Prescriptions: New sennosides-docusate sodium [Stimulant Laxative Plus] 8.6-50 mg Tablet 2 tab PO BID Qty: 0 0RF acetaminophen 500 mg Tablet 1,000 mg PO Q8 Qty: 0 0RF lisinopril 10 mg Tablet 10 mg PO QHS Qty: 0 0RF lisinopril 10 mg Tablet 30 mg PO DAILY Qty: 0 0RF oxycodone 5 mg Tablet 5 mg PO Q4H PRN PRN (Reason: Pain Score 4-10) Qty: 0 0RF Eliquis 5 mg Tablet 5 mg PO BID Qty: 0 0RF Rx Instructions: Hold 48 hours prior to left forearm PROPOSED surgery by Dr. Mcgovern as outpatient Continued metoprolol succinate 25 mg tablet extended release 24 hr 75 mg PO BID diltiazem HCl [Cartia XT] 120 mg capsule,extended release 24hr 120 mg PO DAILY duloxetine 60 mg capsule,delayed release(DR/EC) 60 mg PO .HS atorvastatin 40 mg tablet 40 mg PO DAILY oxybutynin chloride 15 mg tablet extended release 24hr 15 mg PO .at hs gabapentin 100 mg capsule 100 mg PO TID alprazolam 0.25 mg tablet 0.25 mg PO BID trazodone 100 mg tablet 200 mg PO QHS etodolac 500 mg tablet 500 mg PO BID PRN (Reason: pain) Discontinued Monopril 75 mg PO DAILY Rx Instructions: 25 mg tabs to equal 75mg daily fosinopril 10 mg tablet PO Rx Instructions: 3 tabs in the morning and 1 tablet in the evening Referrals / Follow Up: ADDISON HENRY DO [Primary Care Provider, Family Practice] Mikhail Mcgovern MD [Med Staff - Active Staff, Orthopedics] - Within 1 Week Referral Note: Follow up next week for displaced left ulnar fracture. Will need ORIF as per Dr. Gould Disposition Disposition (needs filled in before D/C Order can be placed): [facility] ([facility]) Closed left forearm fracture Qualifiers: Encounter type: initial encounter Qualified Code(s): S52.92XA - Unspecified fracture of left forearm, initial encounter for closed fracture
--- NOTE | 2025-07-04 11:45 | CT_ITS ---
PROCEDURE: EXTREMITY UPPER WITHOUT CONTRA 07/04/2025 REASON FOR EXAM: LEFT DISTAL ULNAR FRACTURE TECHNIQUE: Procedure Code: CTEUWO Modality: CT Procedure: EXTREMITY UPPER WITHOUT CONTRA Coronal and Sagittal reconstruction series were provided. One or more dose reduction techniques were used (e.g., Automated exposure control, adjustment of the mA and/or kV according to patient size, use of iterative reconstruction technique. RADIATION DOSE SUMMARY: CTDlvol: 24.58 mGy DLP: 683.53 mGycm COMPARISON: Prior radiograph dated July 03, 2000 25. FINDINGS: Bones: There is a nondisplaced transverse fracture of the distal radial metaphysis. Nondisplaced oblique fracture of the distal ulnar shaft. There is good alignment. Joints: Degenerative changes are present Soft Tissues: Soft tissue swelling. CT/Extremity Upper without Contra IMPRESSION: Nondisplaced transverse fracture of the distal radial metaphysis as well as an undisplaced oblique fracture of the distal ulnar shaft. Soft tissue swelling. Reading Location: [place] [id number]
--- NOTE | 2025-07-04 12:11 | CASEMGMT ---
Addendum entered by Daisy Villagran 07/04/25 13:54: Hospitalist called to update SW that pt will d/c today. Pt updated. Pt dtr updated. TCU admissions updated. RENAE Rodriguez Original Note: Social Work- SW received notice that pt has precert for TCU. Hospitalist updated; reports d/c to be 07/05. SW updated pt and pt dtr January. Pt and dtr agreeable to d/c plan stated above. Green sheet on the chart for final arrangements and notifications. Plan: TCU; skilled level of care RENAE Rodriguez
--- NOTE | 2025-07-04 13:36 | PCM.DC.SUM ---
Providers Date of Admission: 07/02/25 Date of Discharge: 07/04/25 Primary Care Physician: ADDISON HENRY, DO Consultations 07/03/25 11:23 Consult: Orthopedics Routine Consulting Provider: Fred Gould Reason for Consult: clarification for weight bearing status. EMERGENT Consult: No MD Notified: Yes Date Notified: 07/03/25 Time Notified: 11:24 Method of Notification: Verbal Reason For Visit: LEFT HIP AND ARM FRACTURES Diagnosis Discharge Diagnosis (1) Closed left forearm fracture: Status: Acute Code(s): S52.92XA - Unspecified fracture of left forearm, initial encounter for closed fracture Qualifiers: Encounter type: initial encounter Qualified Code(s): S52.92XA - Unspecified fracture of left forearm, initial encounter for closed fracture (2) Status post hip surgery: Status: Acute Code(s): Z98.890 - Other specified postprocedural states Plan 68-year-old female came to ED with chief complaint of left hip and pelvis pain. She fell down and broke her left femur/hip for which she had surgery and also left arm fracture. Patient denies any history of DVT/blood clot and on Eliquis. # Acute/subacute left hip pain and debility due to recent left hip fracture status post screw fixation. Hip and pelvis x-ray reviewed shows 3 screws present within left femoral neck and head. No hardware loosening or failure. No new fractures seen patient is being admitted to medicine floor for rehab -PT/OT -Case management consult -Supportive care - Bowel and bladder care. Denies dysuria. Due to follow-up orthopedic surgeon after discharge 07/04: Left hip surgical dressing is dry. Left hip percutaneous pinning with 3 partially-threaded cancellous screws. Patient is 2 weeks post left hip percutaneous pinning for likely undisplaced hip fracture. He advised advanced weightbearing as per tolerated. [place] to be removed today. Wound is healthy. No wound discharge. # Closed distal left ulnar displaced fracture: Left forearm within cast - Continue supportive care - PT/OT Displaced fracture deformity of distal ulna with angulation and overlying cast. CT of left upper extremity which reported nondisplaced transverse fracture of the distal radial metaphysis as well as an undisplaced oblique fracture of the distal ulnar shaft but x-ray clearly shows displaced fracture of the distal left ulna. Soft tissue swelling Discussed with Dr. Fred Gould who has seen the patient. He said he does not do upper extremity surgery therefore Dr. Mcgovern was contacted by him. He is out of town but he will be back in the office next week. Outpatient referral to him and probably needs scheduled ORIF surgery for left displaced ulnar fracture. Patient is being discharged to TCU but can follow-up with Dr. Mcgovern next week # History of A-fib -Patient remains on Eliquis and has not missed any doses. Home medication does not show Eliquis but ordered -resume home metoprolol and diltiazem once dose has been confirmed - Heart rate 80s to 90s and patient is in A-fib in the ED, but seems sinus rhythm on the floor. Patient had tachycardia in ED probably due to pain which was controlled with pain medication Alphahemolytic bacteremia: I do not see indication of getting blood culture drawn and urine culture in ED but it was done. Patient did not had a fever or chills or leukocytosis or clinical signs and symptoms of wound infection or local infection. Blood culture shows GPC in chains and PCR alphahemolytic Streptococcus. Other blood culture is negative so far. Discussed with ID. Patient did not show signs and symptoms of infection or sepsis. We, Dr. Perdomo and I agree most probably it is skin commensal/colonization therefore antibiotic discontinued. Urine culture shows gram-negative rods 1000 to 10,000 unit in nonpathologic range. Does not have clinical symptoms of UTI like increased frequency urgency or burning micturition #DVT ppx: On Eliquis 5 mg twice daily Discharge medication reconciliation done. Discharge follow-up instructions completed. Discharge process discussed with the patient and all questions were answered to patient's satisfaction. Follow with PCP in 1 to 2 weeks Total time spent, exact 35 minutes on discharge meds reconciliation, examination, coordination of care with nurses and ancillary staff, review of imaging and blood test and discussion with the patient on follow-up instructions. Medications at Discharge Home Medications alprazolam 0.25 mg tablet 0.25 mg PO BID 07/02/25 atorvastatin 40 mg tablet 40 mg PO DAILY 07/02/25 diltiazem HCl 120 mg capsule,extended release 24 hr (Cartia XT) 120 mg PO DAILY 07/02/25 duloxetine 60 mg capsule,delayed release 60 mg PO .HS 07/02/25 etodolac 500 mg tablet 500 mg PO BID PRN pain 07/02/25 gabapentin 100 mg capsule 100 mg PO TID 07/02/25 metoprolol succinate 25 mg tablet,extended release 24 hr 75 mg PO BID heart rate 07/02/25 oxybutynin chloride 15 mg tablet,extended release 24 hr 15 mg PO .at hs 07/02/25 trazodone 100 mg tablet 200 mg PO QHS 07/02/25 acetaminophen 500 mg tablet 1,000 mg (2 x 500 mg) PO Q8 #0 tabs 07/04/25 apixaban 5 mg tablet (Eliquis) 5 mg PO BID #0 tabs 07/04/25 lisinopril 10 mg tablet 10 mg PO QHS #0 tabs 07/04/25 lisinopril 10 mg tablet 30 mg (3 x 10 mg) PO DAILY #0 tabs 07/04/25 oxycodone 5 mg tablet 5 mg PO Q4H PRN PRN Pain Score 4-10 #0 tabs 07/04/25 sennosides 8.6 mg-docusate sodium 50 mg tablet (Stimulant Laxative Plus) 2 tab PO BID #0 tabs 07/04/25 Hospital Course Summary of Care Provided Hospital Course: Clinical Impression(s) from Imaging Studies Chest X-Ray 07/02/25 13:10 IMPRESSION: Exaggeration of the thoracic kyphosis. Subsegmental atelectasis left lung base. Reading Location: [facility] Hip/Pelvis X-Ray 07/02/25 13:10 IMPRESSION: No acute abnormality. Reading Location: [id number] Forearm X-Ray 07/03/25 15:25 IMPRESSION: Displaced fracture deformity of distal ulna with angulation and overlying cast. Soft tissue swelling overlying fracture segments. Reading Location: [id number] Wrist X-Ray 07/03/25 15:25 IMPRESSION: Distal ulna fracture Reading Location: [id number] Upper Extremity CT 07/04/25 11:45 IMPRESSION: Nondisplaced transverse fracture of the distal radial metaphysis as well as an undisplaced oblique fracture of the distal ulnar shaft. Soft tissue swelling. Reading Location: [facility] Physical Exam Narrative Seen and examined. She has left hip fracture and surgery done in [place] where she fell down and broke her left hip 2 weeks ago. She came to ED with increased left chronic pain and could not do ADL She has history of A-fib/flutter and follows [facility] and [facility] [facility] Physical exam General: Alert, Oriented x3, Cooperative HEENT: Atraumatic, PERRLA, EOMI, Normocephalic. Oral: No Gingival or Mucosal Lesions/ Ulcerations Neck: Supple, No JVD, Negative Carotid Bruits Chest wall/Lungs: Air entry diminished in bilateral lung bases. No crepitation/rhonchi Cardiovascular: Regular rate and rhythm, sinus rhythm no M/G/R Abdomen: Bowel Sounds Present, Soft, Non Tender, Non-Distended : No dysuria. No renal angle tenderness. No suprapubic tenderness. Extremities: No edema, Capillary Refill Less than 3 Seconds Skin: No rashes, No breakdown Musculoskeletal: Left hip surgical dressing is dry. No hematoma. Mild postop tenderness. ROM restricted over left hip. Left forearm has bandage from elbow to wrist. Neurological: Cranial nerves II-XII grossly intact, DTR 2+/4. No acute focal neurological deficit. Psych/Mental Status: Normal Affect, Appropriate. Weight / BMI Weight Weight: 250 lb 11.2 oz Body Mass Index (BMI) 34.0 ABG / Lab / Microbiology Data 07/04/25 03:39 07/04/25 03:39 Laboratory: Laboratory Results - last 24 hr 07/04/25 03:39: WBC 4.3 L, RBC 3.87 L, Hgb 11.6 L, Hct 35.5 L, MCV 91.7, MCH 30.0, MCHC 32.7, RDW Std Deviation 44.3 H, RDW Coeff of Roseline 13.2, Plt Count 265, MPV 10.7, Immature Gran % (Auto) 0.200, Neut % (Auto) 45.2 L, Lymph % (Auto) 40.3, Love % (Auto) 8.0, Eos % (Auto) 5.4 H, Baso % (Auto) 0.9, Absolute Neuts (auto) 1.9 L, Absolute Lymphs (auto) 1.72, Nucleated RBC % 0, Sodium 141, Potassium 3.9, Chloride 107, Carbon Dioxide 22.4, Anion Gap 12, BUN 14, Creatinine 0.58 L, Estim Creat Clear Calc 90.98, Est GFR (MDRD) Non-Af 97, BUN/Creatinine Ratio 24.2 H, Glucose 95, Calcium 9.0 Microbiology: Microbiology 07/02/25 13:50 Urine, Clean Catch Urine Culture - Final Gram negative damaso 07/02/25 19:49 Blood Culture (Wb) - Anticubital Left Bacteria Detection (PCR) - Final 07/02/25 19:49 Blood Culture (Wb) - Anticubital Left Blood Culture - Preliminary Alpha hemolytic organism Radiography Diagnostic Testing: Radiology Impression Forearm X-Ray 07/03/25 15:25 IMPRESSION: Displaced fracture deformity of distal ulna with angulation and overlying cast. Soft tissue swelling overlying fracture segments. Reading Location: [facility] Wrist X-Ray 07/03/25 15:25 IMPRESSION: Distal ulna fracture Reading Location: [id number] Upper Extremity CT 07/04/25 11:45 IMPRESSION: Nondisplaced transverse fracture of the distal radial metaphysis as well as an undisplaced oblique fracture of the distal ulnar shaft. Soft tissue swelling. Reading Location: [facility] D/C Instructions DC O2, CPAP, BIPAP Needs Home O2 Discharge instructions: No Meaningful Use Info Meaningful Use Meaningful Use Diagnoses (Choose all that apply): None applicable Discharge Plan Admission Admit Date/Time: 07/02/25 16:22 Primary Reason for Your Visit: Left hip status post ORIF. Left distal ulna displaced fracture Attending Provider: Doe Alvarez Primary Care Provider: ADDISON HENRY Consulting Providers: Unique Clay; Fred Gould Discharge Orders/Prescriptions Prescriptions: New sennosides-docusate sodium [Stimulant Laxative Plus] 8.6-50 mg Tablet 2 tab PO BID Qty: 0 0RF acetaminophen 500 mg Tablet 1,000 mg PO Q8 Qty: 0 0RF lisinopril 10 mg Tablet 10 mg PO QHS Qty: 0 0RF lisinopril 10 mg Tablet 30 mg PO DAILY Qty: 0 0RF oxycodone 5 mg Tablet 5 mg PO Q4H PRN PRN (Reason: Pain Score 4-10) Qty: 0 0RF Eliquis 5 mg Tablet 5 mg PO BID Qty: 0 0RF Rx Instructions: Hold 48 hours prior to left forearm PROPOSED surgery by Dr. Mcgovern as outpatient Continued metoprolol succinate 25 mg tablet extended release 24 hr 75 mg PO BID diltiazem HCl [Cartia XT] 120 mg capsule,extended release 24hr 120 mg PO DAILY duloxetine 60 mg capsule,delayed release(DR/EC) 60 mg PO .HS atorvastatin 40 mg tablet 40 mg PO DAILY oxybutynin chloride 15 mg tablet extended release 24hr 15 mg PO .at hs gabapentin 100 mg capsule 100 mg PO TID alprazolam 0.25 mg tablet 0.25 mg PO BID trazodone 100 mg tablet 200 mg PO QHS etodolac 500 mg tablet 500 mg PO BID PRN (Reason: pain) Discontinued Monopril 75 mg PO DAILY Rx Instructions: 25 mg tabs to equal 75mg daily fosinopril 10 mg tablet PO Rx Instructions: 3 tabs in the morning and 1 tablet in the evening Referrals / Follow Up: ADDISON HENRY DO [Primary Care Provider, Family Practice] Mikhail Mcgovern MD [Med Staff - Active Staff, Orthopedics] - Within 1 Week Referral Note: Follow up next week for displaced left ulnar fracture. Will need ORIF as per Dr. Gould Disposition Disposition (needs filled in before D/C Order can be placed): Long-Term Facility Charges/Coding Visit Charges Inpatient E&M: 04444 Disch Hosp >30min
[2025-07-04 13:52] VITALS: BP 133/79; PULSE 64; RESP 17; TEMP 36.7; O2SAT 95
--- NOTE | 2025-07-04 13:54 | CASEMGMT ---
Addendum entered by Daisy Villagran 07/04/25 15:08: Social Work updated pt dtr that pt will be in room 6. TRICE faxed d/c to TCU. RENAE Rodriguez Original Note: Social Work Precert has been obtained.? Physician updated and pt is ready for discharge today. TRICE met with pt and they are agreeable to discharge plan as stated above.?Pt dtr and bedside nurse notified of discharge. Disposition:TCU, skilled level of care under convalescent stay. RENAE Rodriguez
--- NOTE | 2025-07-04 15:05 | PHA.DC.MR.R ---
Pharmacy [place] Med Reconciliation Pharmacy Service has performed discharge medication reconciliation for this patient. The patient's discharge medication list was reviewed for discrepancies and discrepancies were resolved. Medications at Discharge Home Medications alprazolam 0.25 mg tablet 0.25 mg PO BID 07/02/25 atorvastatin 40 mg tablet 40 mg PO DAILY 07/02/25 diltiazem HCl 120 mg capsule,extended release 24 hr (Cartia XT) 120 mg PO DAILY 07/02/25 duloxetine 60 mg capsule,delayed release 60 mg PO .HS 07/02/25 etodolac 500 mg tablet 500 mg PO BID PRN pain 07/02/25 gabapentin 100 mg capsule 100 mg PO TID 07/02/25 metoprolol succinate 25 mg tablet,extended release 24 hr 75 mg PO BID heart rate 07/02/25 oxybutynin chloride 15 mg tablet,extended release 24 hr 15 mg PO .at hs 07/02/25 trazodone 100 mg tablet 200 mg PO QHS 07/02/25 acetaminophen 500 mg tablet 1,000 mg (2 x 500 mg) PO Q8 #0 tabs 07/04/25 apixaban 5 mg tablet (Eliquis) 5 mg PO BID #0 tabs 07/04/25 lisinopril 10 mg tablet 10 mg PO QHS #0 tabs 07/04/25 lisinopril 10 mg tablet 30 mg (3 x 10 mg) PO DAILY #0 tabs 07/04/25 oxycodone 5 mg tablet 5 mg PO Q4H PRN PRN Pain Score 4-10 #0 tabs 07/04/25 sennosides 8.6 mg-docusate sodium 50 mg tablet (Stimulant Laxative Plus) 2 tab PO BID #0 tabs 07/04/25
== END 2025-07-04 15:22 | disposition skilled nursing facility (03) ==
LOC: ED 16:12 → MS3 16:29
PROVIDERS: Admitting Provider Internal Medicine; Emergency Provider Emergency Medicine; PCP Family Medicine; Visit Provider Internal Medicine
DX: S72.052D Unspecified fracture of head of left femur, subsequent encounter for closed fracture with routine healing (principal); I48.91 Unspecified atrial fibrillation; I48.92 Unspecified atrial flutter; R53.81 Other malaise; Z79.01 Long term (current) use of anticoagulants; Z87.891 Personal history of nicotine dependence; I10 Essential (primary) hypertension; M40.204 Unspecified kyphosis, thoracic region; S52.502D Unspecified fracture of the lower end of left radius, subsequent encounter for closed fracture with routine healing; S52.602D Unspecified fracture of lower end of left ulna, subsequent encounter for closed fracture with routine healing; W19.XXXD Unspecified fall, subsequent encounter; R78.81 Bacteremia; B96.89 Other specified bacterial agents as the cause of diseases classified elsewhere
CPT/HCPCS: 36415; 71046; 73090; 73110; 73200; 73502; 80048; 80053; 81001; 83605; 84484; 85025; 85610; 85730; 87040; 87077; 87086; 87088; 87149; 87186; 93005; 94668; 96361; 96365; 96366; 96375; 96376; 97162; 97166; 97530; 97535; 99221; 99285; A4216; G0378; J0295; J2405

== ENCOUNTER 2025-07-04 15:30 | Inpatient (IN) | payer MEDICARE, SELFPAY ==
[2025-07-04 15:50] VITALS: BP 159/91; PULSE 64; PULSE 65; RESP 21; TEMP 36.2; O2SAT 95; BMI 34.4
--- NOTE | 2025-07-04 16:04 | PCM.HP.STD ---
HPI - General General Date of Admission: 07/04/25 Date of Service: 07/04/25 Chief Complaint: Here for rehabilitation. HPI Narrative ELENO KENNY, is a 69 Female who presents with followin06/16/2025 Vacationing in [place], fell, broke left hip, broke left radius, left ulna. Underwent ORIF left hip, cast left arm. 07/02/2025 [facility] ED left hip, left pelvis pain. Atrial fibrillation status post ablation on Eliquis. In [place], fell, left hip fracture, left arm fracture, as above. Atrial fibrillation acting up in hospital. Left groin pain worsening. EKG showed atrial flutter with variable block, heart rate 85. Urinalysis negative. [place], Zofran given for pain. PT/OT placement. 07/02/2025 Admit [facility]. PT/OT/CM placement. Supportive care for left arm fracture. Metoprolol, Diltiazem, Eliquis for atrial fibrillation. 07/03/2025 PT/OT/CM. 07/03/2025 Dr. Gould recommended WBAT LLE for left hip fracture s/p ORIF. Dr. Gould recommended left upper extremity elevation, immobility, outpatient hand surgery consultation for left forearm fracture. 07/04/2025 Admit to TCU with debility, here for rehabilitation, strengthening, prior to discharge home with . [facility] Medical History (Updated 07/04/25 @ 16:[address] Malcolm Smith MD) Anxiety Former smoker CPAP (continuous positive airway pressure) dependence Sleep apnea Hypertension Atrial fibrillation Home Medications ?Medication ?Instructions ?Recorded ?Last Taken ?Type alprazolam 0.25 mg tablet 0.25 mg PO BID Anxiety 07/02/25 Unknown History atorvastatin 40 mg tablet 40 mg PO DAILY Cholesterol 07/02/25 07/03/25 History diltiazem HCl 120 mg 120 mg PO DAILY Heart 07/02/25 07/04/25 08:30 History capsule,extended release 24 hr (Cartia XT) duloxetine 60 mg capsule,delayed 60 mg PO .HS Mood 07/02/25 07/03/25 History release etodolac 500 mg tablet 500 mg PO BID PRN pain 07/02/25 Unknown History gabapentin 100 mg capsule 100 mg PO TID Nerve Pain 07/02/25 07/04/25 05:35 History metoprolol succinate 25 mg 75 mg PO BID heart rate 07/02/25 07/04/25 08:30 History tablet,extended release 24 hr oxybutynin chloride 15 mg 15 mg PO .at hs Overactive bladder 07/02/25 07/03/25 History tablet,extended release 24 hr trazodone 100 mg tablet 200 mg PO QHS Sleep 07/02/25 07/03/25 History acetaminophen 500 mg tablet 1,000 mg (2 x 500 mg) PO Q8 Pain 07/04/25 07/04/25 05:35 Rx #0 tabs apixaban 5 mg tablet (Eliquis) 5 mg PO BID Anticoagulant #0 tabs 07/04/25 07/04/25 08:30 Rx lisinopril 10 mg tablet 10 mg PO QHS BP #0 tabs 07/04/25 07/03/25 Rx lisinopril 10 mg tablet 30 mg (3 x 10 mg) PO DAILY BP #0 07/04/25 07/04/25 08:30 Rx tabs oxycodone 5 mg tablet 5 mg PO Q4H PRN PRN Pain Score 07/04/25 07/04/25 13:20 Rx 4-10 #0 tabs sennosides 8.6 mg-docusate sodium 2 tab PO BID Constipation #0 tabs 07/04/25 07/04/25 08:30 Rx 50 mg tablet (Stimulant Laxative Plus) Allergy/AdvReac Type Severity Reaction Status Date / Time No Known Allergies Allergy Verified 07/02/25 12:27 Surgical History (Updated 07/04/25 @ 16:[address] Malcolm Smith MD) History of open reduction and internal fixation (ORIF) procedure History of cardiac ablation for atrial fibrillation Social History (Updated 07/04/25 @ 16:[address] Malcolm Smith MD) household members: spouse Smoking Status: Former smoker alcohol intake: never substance use type: does not use ROS Constitutional Constitutional: Reports weakness; Denies chills, fever(s) or weight gain ENT HEENT: Denies headache(s), nasal congestion or nasal discharge Cardiovascular Cardiovascular: Denies chest pain or palpitations Respiratory/Chest Respiratory/Chest: Denies cough, excessive phlegm production or shortness of breath with exertion Gastrointestinal Gastrointestinal: Denies abdominal pain, nausea or vomiting Genitourinary Genitourinary: Denies dysuria Musculoskeletal Musculoskeletal: Denies joint pain or joint swelling Integumentary Integumentary: Denies rash or wounds Neurologic Neurologic: Denies focal weakness, numbness or tingling Psychiatric Psychiatric: Denies anxiety, auditory hallucinations, depression, homicidal ideation or suicidal ideation Vital Signs Vital Signs Vital Signs: Weight Weight: 115.212 kg Body Mass Index (BMI) 34.4 Physical Exam Const alert General Appearance: cooperative HEENT normocephalic Eyes PERRL and EOMs intact bilaterally Neck supple, no JVD and no carotid bruits Resp normal respiratory effort, normal air movement and clear to auscultation bilaterally Cardio regular rate and regular rhythm GI normal to inspection, nondistended, normoactive bowel sounds, non-tender and non-distended Extremity normal capillary refill Extremity Narrative: Left upper extremity short arm cast. General Extremity: Negative for edema Skin no rashes or lesions noted General Skin Exam: no breakdown Psych affect normal Appearance: appropriate Assessment & Plan Assessment/Plan (1) Debility: (2) Closed fracture of left hip: (3) Closed left forearm fracture: QUALIFIERS: Encounter type: initial encounter Qualified Code(s): S52.92XA - Unspecified fracture of left forearm, initial encounter for closed fracture (4) Atrial fibrillation: (5) Essential (primary) hypertension: (6) Anxiety: (7) Depression: (8) Osteoarthritis: (9) Neuropathic pain: (10) Overactive bladder: (11) Insomnia: PLAN: Plan 69 year old female with below past medical history hospitalized for left hip fracture, s/p ORIF, left forearm fracture, s/p cast, admitted to TCU with debility, here for rehabilitation, strengthening, prior to discharge home with . Debility - PT/OT. Pain - Tylenol 1000mg q8, Oxycodone 5mg q4 prn pain (4-10), Arthritis Compound Cream 2 clicks bid prn. Bowel - senna/colace 2 tablets bid, Magnesium citrate 300mL daily prn. Adult immunization - Administer pneumonia vaccine, covid vaccine, flu vaccine as appropriate. DVT prophylaxis - Eliquis. Atrial fibrillation - Metoprolol succinate 75mg bid, Diltiazem 120mg daily, Eliquis 5mg bid. Hyperlipidemia - Atorvastatin 40mg qhs. Neuropathic pain - Gabapentin 100mg tid. Hypertension - Metoprolol succinate 75mg bid, Diltiazem 120mg daily, Lisinopril 30mg qam, 10mg qhs. Overactive bladder - Oxybutynin 15mg qhs. The following psychotropic medication was present on admission: Xanax 0.25mg bid. Psychotropic medication therapy is indicated for a diagnosis of: Anxiety. Based on my clinical evaluation, continuation of the medication is necessary at this time. Gradual dose reduction plan (select one): ____ GDR will be attempted. Will monitor patient symptoms and behaviors in response to GDR. __x__ GRD contraindicated. 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 The following psychotropic medication was present on admission: Duloxetine 60mg qhs. Psychotropic medication therapy is indicated for a diagnosis of: Major Depression. Based on my clinical evaluation, continuation of the medication is necessary at this time. Gradual dose reduction plan (select one): ____ GDR will be attempted. Will monitor patient symptoms and behaviors in response to GDR. __x__ GRD contraindicated. 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 The following psychotropic medication was present on admission: Trazodone 200mg qhs. Psychotropic medication therapy is indicated for a diagnosis of: Insomnia. Based on my clinical evaluation, continuation of the medication is necessary at this time. Gradual dose reduction plan (select one): ____ GDR will be attempted. Will monitor patient symptoms and behaviors in response to GDR. __x__ GRD contraindicated. 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
[2025-07-04] MEDS: Senna/Docusate Sodium 1 Tablet 2 TABLET PO (21:08)
[2025-07-04 21:09] VITALS: BP 170/88; PULSE 60
[2025-07-04] MEDS: Metoprolol(XL)Succ 25 MG Tablet 75 MG PO (21:09)
[2025-07-04] MEDS: APIXABAN 5 MG TABLET PO (21:10)
[2025-07-05 06:57] LABS: Hematocrit 38.2 % (37-47); Hemoglobin 12.7 g/dL (12.0-15.0); Immature Granulocytes Count 0.020 X10^3/uL (0.0-0.0); Mean Corp Hgb Conc 33.2 g/dL (32-36); Mean Corpuscular Volume 91.4 fL (81-99); Mean Platelet Vol. 10.8 fl (6.2-12.0); NRBC Flagged by Analyzer 0 % (0-5); Platelet Count 274 K/mm3 (150-450); RBC Distribution Width CV 13.2 % (11.6-14.6); RBC Distribution Width SD 43.5 fl (35.1-43.9); Red Blood Count 4.18 M/mm3 (4.2-5.4); White Blood Count 4.1 K/mm3 (4.4-11.0)
[2025-07-05 07:23] LABS: Anion Gap 11 (5-15); BUN 12 mg/dL (4-19); BUN/Creat Ratio 20.2 RATIO (10-20); Calcium,Total 9.2 mg/dL (7.6-11.0); Carbon Dioxide 24.4 mmol/L (21.0-32.0); Chloride 106 mmol/L (98-108); Estimated Creatinine Clearance 91.58 ml/min (50-250); Glucose 101 mg/dL (70-99); Potassium 3.9 mmol/L (3.3-5.1)
[2025-07-05 09:39] VITALS: BP 129/79; PULSE 66
[2025-07-05] MEDS: Metoprolol(XL)Succ 25 MG Tablet 75 MG PO ×2 (09:39→21:34)
[2025-07-05] MEDS: APIXABAN 5 MG TABLET PO ×2 (09:40→21:33)
[2025-07-05] MEDS: Senna/Docusate Sodium 1 Tablet 2 TABLET PO ×2 (09:44→21:30)
[2025-07-05] MEDS: Tuberculin,Purif.prot.deriv. 50 TU/ML Vial 0.1 ML ID (09:49)
[2025-07-05 09:54] VITALS: BP 129/79; PULSE 66; RESP 18; TEMP 36.2; O2SAT 94
[2025-07-05 10:35] VITALS: PULSE 66; RESP 18; O2SAT 94
[2025-07-05 21:34] VITALS: BP 189/92; PULSE 63
[2025-07-05 21:43] VITALS: BP 189/92; PULSE 63
[2025-07-05 22:53] VITALS: BP 153/88; PULSE 61
[2025-07-06 08:30] VITALS: BP 164/91; PULSE 65; RESP 18; TEMP 36.3; O2SAT 94
[2025-07-06] MEDS: Senna/Docusate Sodium 1 Tablet 2 TABLET PO (08:40)
[2025-07-06] MEDS: APIXABAN 5 MG TABLET PO ×2 (08:41→21:22)
[2025-07-06 08:42] VITALS: BP 164/91; PULSE 65
[2025-07-06] MEDS: Metoprolol(XL)Succ 25 MG Tablet 75 MG PO ×2 (08:42→21:20)
--- NOTE | 2025-07-06 11:16 | NURSING ---
PT HAS POST LOWER FINE CRACKLES AND BLE EDEMA NON PITTING. NO COMPLAINTS OR OTHER SYMPTOMS AT THIS TIME. PT DOES MOVE WELL SITS IN RECLINER AND USES THE I.S. NOTE LEFT FOR YUNIOR MILTON AWARE.
[2025-07-06 11:30] VITALS: PULSE 65; RESP 18; O2SAT 95
--- NOTE | 2025-07-06 14:22 | NURSING ---
PT DAUGHTER WILL BE HERE 07/10/25 AT 10;10AM TO TAKE PT TO APPOINTMENT. PLEASE HAVE PT UP AND READY AND DOWN AT THE MAIN ENTRANCE AT THAT TIME.
--- NOTE | 2025-07-06 15:19 | RAD_ITS ---
PROCEDURE: CHEST PA AND LATERAL 07/06/2025 REASON FOR EXAM: CRACKLES TECHNIQUE: Procedure Code: RADCXR Modality: DX Procedure: CHEST PA AND LATERAL COMPARISON: 07/02/2025 FINDINGS: Cardiac size top normal. Lungs are clear. Degenerative changes thoracic spine with multi focal chronic compression deformities RAD/Chest PA and Lateral IMPRESSION: No acute abnormality Reading [facility]
--- NOTE | 2025-07-06 18:57 | NURSING ---
UPDATED PT ON HER APPOINTMENT ON 07/10/25 WITH AT 10:30AM. PT STATED HER AND HER DAUGHTER WAS NOT AWARE OF THE APPOINTMENT AND FOR ELIQUIS TO BE PUT ON HOLD 48 HOURS BEFORE [07/08/25. DAUGHTER STATED SHE WOULD PICK HER MOM UP AT 10:10AM AT MAIN ENTRANCE.
[2025-07-06 21:20] VITALS: BP 170/99; PULSE 62
[2025-07-06 21:26] VITALS: BP 170/99; PULSE 62
--- NOTE | 2025-07-07 08:38 | NURSING ---
Addendum entered by Laisha Romero 07/07/25 14:24: Call back, no need to hold thinner. Appt for consultation, no definite plans for surgery at this time. Original Note: Left VM with [facility] to see about possibility of needing to hold eliquis. Await return call.
[2025-07-07 09:56] VITALS: BP 123/81; PULSE 63
[2025-07-07] MEDS: APIXABAN 5 MG TABLET PO ×2 (09:56→21:17)
[2025-07-07] MEDS: Metoprolol(XL)Succ 25 MG Tablet 75 MG PO ×2 (09:56→21:17)
[2025-07-07] MEDS: Senna/Docusate Sodium 1 Tablet 2 TABLET PO ×2 (09:59→21:18)
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
--- NOTE | 2025-07-07 12:17 | NURSING ---
Kitchen Aide Note; Activity Asset: Yohannes Condon is independent in her choice of daily activities. She has a cast on her left hand so she can still use her right for games on her phone she stated. She will watch tv, read and have family visits. Roseanna welcomes visits from the lubricating specialist and therapy dog when available. Staff will encourage social activities, remind her of weekly activities and respect her right to say no.
--- NOTE | 2025-07-07 13:35 | PCM.PN.DRR ---
Documented by User: Mattie Leone 07/07/25 13:57 TCU RX Drug Regimen Review Subjective/Objective Subjective/Objective Subjective: TCU Admission. 69 YOF presented to the ER with left hip/pelvis pain. Hospitalized for left hip fracture, s/p ORIF, left forearm fracture, s/p cast. Admitted to TCU with debility for strengthening and rehabilitation. Objective: Allergies No Known Allergies Allergy (Verified 07/02/25 12:27) Current Medications Generic Name Dose Route Start Last Admin Trade Name Freq PRN Reason Stop Dose Admin Acetaminophen 1,000 mg 07/04/25 22:00 07/07/25 05:38 Acetaminophen 500 Mg Tablet PO 1,000 mg Q8 SALVADOR Administration Alprazolam 0.25 mg 07/04/25 22:00 07/07/25 09:59 Alprazolam 0.25 Mg Tablet PO 0.25 mg BID SALVADOR Administration Apixaban 5 mg 07/04/25 22:00 07/07/25 09:56 Apixaban 5 Mg Tablet PO 5 mg BID SALVADOR Administration Atorvastatin Calcium 40 mg 07/04/25 22:00 07/06/25 21:22 Atorvastatin Calcium 40 Mg Tablet PO 40 mg QHS SALVADOR Administration Compound Med 2 click 07/04/25 16:14 Arthritis Pain Compound 60 Click Tube TOPICAL BID PRN Pain Score 1-10 Protocol Diltiazem HCl 120 mg 07/05/25 10:00 07/07/25 09:56 Diltiazem Cd 120 Mg Capsule PO 120 mg DAILY SALVADOR Administration Protocol Duloxetine HCl 60 mg 07/04/25 22:00 07/06/25 21:24 Duloxetine Hcl 60 Mg Capsule PO 60 mg QHS SALVADOR Administration Gabapentin 100 mg 07/04/25 22:00 07/07/25 05:37 Gabapentin 100 Mg Capsule PO 100 mg TID SALVADOR Administration Losartan Potassium 100 mg 07/05/25 10:00 07/07/25 09:57 Losartan Potassium 100 Mg Tablet PO 100 mg DAILY SALVADOR Administration Protocol Magnesium Citrate 300 ml 07/04/25 16:17 Magnesium Citrate 300 Ml PO DAILY PRN Constipation Metoprolol Succinate 75 mg 07/04/25 22:00 07/07/25 09:56 Metoprolol(Xl)Succ 25 Mg Tablet PO 75 mg BID SALVADOR Administration Protocol Oxybutynin Chloride 15 mg 07/04/25 22:00 07/06/25 21:21 Oxybutynin 5 Mg Tablet PO 15 mg QHS SALVADOR Administration Oxycodone HCl 5 mg 07/04/25 15:50 07/07/25 09:59 Oxycodone 5 Mg Tablet PO 5 mg Q4H PRN PRN Administration Pain Score 4-10 Senna/Docusate Sodium 2 tablet 07/04/25 22:00 07/07/25 09:59 Senna/Docusate Sodium 1 Tablet PO 2 tablet BID SALVADOR Administration Trazodone HCl 200 mg 07/04/25 22:00 07/06/25 21:21 Trazodone 100 Mg Tablet PO 200 mg QHS SALVADOR Administration Tuberculin PPD 0.1 ml 07/12/25 10:00 Tuberculin,Purif.Prot.Deriv. 50 Tu/Ml Vial ID 07/12/25 10:01 X1 ONE Problem List (Updated 07/04/25 @ 16:[address] Malcolm Smith MD) Insomnia (Acute) Overactive bladder (Acute) Neuropathic pain (Acute) Osteoarthritis (Acute) Depression (Acute) Anxiety (Acute) Essential (primary) hypertension (Acute) Debility (Acute) Closed left forearm fracture (Acute) Closed fracture of left hip (Acute) Atrial fibrillation (Acute) Vital Signs Temp Pulse Resp BP Pulse Ox O2 Del Method 97.4 F L 63 18 123/81 H 95 Room Air 07/06/25 08:30 07/07/25 09:56 07/06/25 11:30 07/07/25 09:56 07/06/25 11:30 07/07/25 10:00 Oxygen Delivery Method Room Air Weight: 115.2 kg Body Mass Index (BMI) 34.4 Sodium 142 mmol/L (133-145) 07/05/25 06:16 Potassium 3.9 mmol/L (3.3-5.1) 07/05/25 06:16 Chloride 106 mmol/L (98-108) 07/05/25 06:16 Carbon Dioxide 24.4 mmol/L (21.0-32.0) 07/05/25 06:16 Anion Gap 11 (5-15) 07/05/25 06:16 BUN 12 mg/dL (4-19) 07/05/25 06:16 Creatinine 0.58 mg/dL (0.70-1.20) L 07/05/25 06:16 Est GFR (MDRD) Non-Af 97 (>60) 07/05/25 06:16 BUN/Creatinine Ratio 20.2 RATIO (10-20) H 07/05/25 06:16 Glucose 101 mg/dL (70-99) H 07/05/25 06:16 Assessment/Plan: 1. Pain: acetaminophen 1000mg PO Q8, oxycodone 5mg PO Q4H PRN pain 4-10 and Arthritis cream 2 clicks topical BID PRN pain 1-10 (no doses given.) Resident has had 11 doses of oxycodone for pain scores of 5-8 in the hip/arm/buttock. Monitor for constipation (last BM: 07/05/25), respiratory depression (current RR range:16-21), falls and sedation/delirium (Beers). Last LFTs:07/02/25. Check LFTs if resident develops symptoms of hepatoxicity. Consider monitoring LFTs if patient using > 3 gm/day of acetaminophen for prolonged period. Do not exceed 4000 mg in 24 hours. Monitor pain scores before/after prn administration for response, PRN pain medication usage, symptoms of pain/resident distress and ability to participate in therapy. 2. Bowel: senna/docusate 2T PO BID and magnesium citrate 300mL PO daily PRN constipation. No PRN doses given. Please continue to monitor for constipation, diarrhea and PRN usage. Last documented bowel movement was 07/05/25. 3. Atrial fibrillation/hypertension: metoprolol succinate 75mg PO BID, diltiazem 120mg PO daily, apixaban 5mg PO BID and losartan 100mg PO daily. Please continue to monitor BP (123/81-189/92), HR (60-66), S/S of bleeding, hemoglobin (last 12.7g/dL), renal function, cough, potassium (last 3.9mmol/L). 4. Hyperlipidemia: atorvastatin 40mg PO QHS. Please consider ordering a lipid panel as there is no panel in the chart. Thanks. Please continue to monitor LFTs (last 07/02/25) and for muscle pain. 5. Neuropathic pain: gabapentin 100mg PO TID. Please continue to monitor for neuropathic pain, confusion, falls/fractures (BEERs). This is a renally dose medication. CrCl estimated = 91mL/min. Dose appropriate for current renal function. Monitor serum creatine periodically. 6. Overactive bladder: oxybutynin 15mg PO QHS. Please continue to monitor for S/S of OAB, dementia/delirium (BEERs) and anticholinergic side effects. Assessment/Plan for indications treated with psychotropic medications: 1. Anxiety: alprazolam 0.25mg PO BID. Please see physician note regarding GDR. Monitor for sedation, mental status and cognition. Monitor for falls (risk factor for falls) and implement fall prevention strategies. Monitor for respiratory depression. RR range since admission =16-21. Monitor for efficacy including resident symptoms, behaviors and indications of distress. Monitor for tolerability including mental status, cognition, excessive sleepiness, withdrawal or decreased participation in activities and decline in physical functioning. Maximize use of nonpharmacologic/behavioral interventions to facilitate dose reduction or discontinuation as appropriate. Please evaluate the appropriateness of GDR unless contraindicated. If appropriate, GDR should be attempted in 2 separate quarters within the first year of use or admission to TCU. If GDR attempted, monitor resident symptoms/behaviors. 2. Major depression: duloxetine 60mg PO QHS. Please see physician note regarding GDR. Monitor for diarrhea, nausea, appetite/weight loss, anxiety or drowsiness, suicidal thoughts or behaviors (Boxed Warning), symptoms of bleeding, symptoms of serotonin syndrome (including agitation, confusion, hyperreflexia, rigidity/myoclonus, tremor, tachycardia, tachypnea), sodium levels (last Na =142mmol/L). Monitor blood pressure. BP range since admission =123/81-189/92. Monitor for orthostatic hypotension, including postural dizziness, syncope or falls. Check orthostatic vital signs if suspicion of orthostasis. Monitor for hepatotoxicity (abdominal pain, nausea, jaundice, dark urine, AST/ALT as clinically indicated). AST/ALT =07/02/25. Monitor for efficacy including resident symptoms, behaviors and indications of distress. Monitor for tolerability including mental status, cognition, excessive sleepiness, withdrawal or decreased participation in activities and decline in physical functioning. Maximize use of nonpharmacologic/behavioral interventions to facilitate dose reduction or discontinuation as appropriate. Please evaluate the appropriateness of GDR unless contraindicated. If appropriate, GDR should be attempted in 2 separate quarters within the first year of use or admission to TCU. If GDR attempted, monitor resident symptoms/behaviors. 3. Insomnia: trazodone 200mg PO QHS. Please see physician note regarding GDR. Monitor for drowsiness, dizziness or confusion, dry mouth, constipation, symptoms of serotonin syndrome (including agitation, confusion, hyperreflexia, rigidity/myoclonus, tremor, tachycardia, tachypnea), suicidal thoughts or behaviors (Boxed Warning). Monitor HR (can cause bradycardia or tachycardia). HR range since admission =60-66. Monitor for orthostatic hypotension, including postural dizziness, syncope or falls. Check orthostatic vital signs if suspicion of orthostasis. Monitor for efficacy including resident symptoms, behaviors and indications of distress. Monitor for tolerability including mental status, cognition, excessive sleepiness, withdrawal or decreased participation in activities and decline in physical functioning. Maximize use of nonpharmacologic/behavioral interventions to facilitate dose reduction or discontinuation as appropriate. Please evaluate the appropriateness of GDR unless contraindicated. If appropriate, GDR should be attempted in 2 separate quarters within the first year of use or admission to TCU. If GDR attempted, monitor resident symptoms/behaviors. Medical chart and medication regimen reviewed. The following medication irregularities or issues were identified: 1. Atorvastatin 40mg PO QHS. Please consider ordering a lipid panel as there is no panel in the chart. Thanks. Date Date of Note: 07/07/25 Documented by User: Dr. Malcolm Smith MD 07/07/25 14:44 TCU RX Drug Regimen Review Provider Comments Provider responsibility Provider Comments to Recommendations by Pharmacy Agree
[2025-07-07 15:00] VITALS: BP 138/89; PULSE 66; RESP 18; TEMP 36.3; O2SAT 94
[2025-07-07 21:10] VITALS: BP 167/93; PULSE 63; RESP 16; O2SAT 94
[2025-07-07 21:17] VITALS: BP 167/93; PULSE 63
[2025-07-08 07:09] LABS: Cholesterol 178 mg/dL (<=200); Low Density Lipoprotein Calc. 100 mg/dL; Triglycerides 128 mg/dL; Very Low Density Lipoprotein 26 mg/dL (5-40); cholesterol:hdl ratio screen 3.42
[2025-07-08 09:50] VITALS: BP 124/76; PULSE 65
[2025-07-08] MEDS: Metoprolol(XL)Succ 25 MG Tablet 75 MG PO ×2 (09:50→21:32)
[2025-07-08] MEDS: APIXABAN 5 MG TABLET PO ×2 (09:50→21:32)
[2025-07-08] MEDS: Senna/Docusate Sodium 1 Tablet 2 TABLET PO ×2 (09:58→21:28)
[2025-07-08 10:04] VITALS: BP 124/76; PULSE 65; RESP 18; TEMP 36.1; O2SAT 92
[2025-07-08 15:01] VITALS: BMI 34.5
[2025-07-08 21:32] VITALS: BP 169/99; PULSE 61
[2025-07-08 21:39] VITALS: PULSE 62; RESP 16; O2SAT 97
[2025-07-08 21:50] VITALS: BP 169/99; PULSE 61
[2025-07-09 09:54] VITALS: BP 134/82; PULSE 86; RESP 18; TEMP 36.6; O2SAT 94
[2025-07-09 10:00] VITALS: PULSE 85; RESP 17; O2SAT 94
[2025-07-09] MEDS: Senna/Docusate Sodium 1 Tablet 2 TABLET PO ×2 (10:00→21:51)
[2025-07-09 10:01] VITALS: BP 134/82; PULSE 86
[2025-07-09] MEDS: APIXABAN 5 MG TABLET PO ×2 (10:01→21:46)
[2025-07-09] MEDS: Metoprolol(XL)Succ 25 MG Tablet 75 MG PO ×2 (10:01→21:51)
[2025-07-09] MEDS: FLU VACCINE HIGH DOSE 25-26(65YR UP) 180 MCG/0.5 ML SYRINGE IM (10:04)
--- NOTE | 2025-07-09 10:17 | CASEMGMT ---
Social Work IDT met with patient at bedside and dtr participated via conference call for care plan meeting. Discussed patient's progress in PT/OT/SN/RDN. Educated to [facility] insurance with NRD 07/11 and continued stay is not guaranteed with each review. Provided pt/family with written communication of insurance process and copay coverage during stay. Pt has ortho appt 07/10 and will determine if surgical intervention for arm is needed and treatment plan following. No other concerns noted. SW will continue to follow for DC planning. Amina Andrade COMMUNICATIONS SCIENTIST BRIDGE ATTACHER
--- NOTE | 2025-07-09 17:28 | CASEMGMT ---
Social Work SW completed BIMS () and PHQ-2 () for MDS assessment. Amina Andrade BASE PLY HAND MACHINE PACKAGING TECHNICIAN
[2025-07-09 21:50] VITALS: BP 154/85; PULSE 63; RESP 17; O2SAT 97
[2025-07-09 21:51] VITALS: BP 154/85; PULSE 63
[2025-07-10 07:59] VITALS: BP 157/90; PULSE 64
[2025-07-10] MEDS: Metoprolol(XL)Succ 25 MG Tablet 75 MG PO ×2 (07:59→20:49)
[2025-07-10] MEDS: Senna/Docusate Sodium 1 Tablet 2 TABLET PO ×2 (08:00→20:55)
[2025-07-10] MEDS: APIXABAN 5 MG TABLET PO ×2 (08:00→20:48)
[2025-07-10 10:00] VITALS: PULSE 80; RESP 16; O2SAT 95
[2025-07-10 16:00] VITALS: BP 157/90; PULSE 64; RESP 16; TEMP 36.9; O2SAT 92
[2025-07-10 20:40] VITALS: BP 146/78; PULSE 67; RESP 16; O2SAT 92
[2025-07-10 20:49] VITALS: BP 146/78; PULSE 64
[2025-07-11 06:20] VITALS: PULSE 76; RESP 16; O2SAT 95
[2025-07-11 07:23] LABS: Hematocrit 41.2 % (37-47); Hemoglobin 13.5 g/dL (12.0-15.0); Immature Granulocytes Count 0.010 X10^3/uL (0.0-0.0); Mean Corp Hgb Conc 32.8 g/dL (32-36); Mean Corpuscular Volume 90.9 fL (81-99); Mean Platelet Vol. 11.0 fl (6.2-12.0); NRBC Flagged by Analyzer 0 % (0-5); Platelet Count 206 K/mm3 (150-450); RBC Distribution Width CV 13.2 % (11.6-14.6); RBC Distribution Width SD 43.5 fl (35.1-43.9); Red Blood Count 4.53 M/mm3 (4.2-5.4); White Blood Count 4.4 K/mm3 (4.4-11.0)
[2025-07-11 07:56] LABS: Anion Gap 12 (5-15); BUN 15 mg/dL (4-19); BUN/Creat Ratio 22.8 RATIO (10-20); Calcium,Total 9.6 mg/dL (7.6-11.0); Carbon Dioxide 24.2 mmol/L (21.0-32.0); Chloride 104 mmol/L (98-108); Estimated Creatinine Clearance 91.77 ml/min (50-250); Glucose 105 mg/dL (70-99); Potassium 4.0 mmol/L (3.3-5.1)
--- NOTE | 2025-07-11 08:55 | NURSING ---
General Production Manager Note; MDS for 07/11/2025 Complete
[2025-07-11] MEDS: Senna/Docusate Sodium 1 Tablet 2 TABLET PO ×2 (10:21→22:08)
[2025-07-11] MEDS: APIXABAN 5 MG TABLET PO ×2 (10:21→22:02)
[2025-07-11 10:27] VITALS: BP 137/80; PULSE 62
[2025-07-11] MEDS: Metoprolol(XL)Succ 25 MG Tablet 75 MG PO ×2 (10:27→22:04)
--- NOTE | 2025-07-11 12:30 | NURSING ---
Addendum entered by Devorah Hays 07/11/25 19:01: Office called back , Wt bearing through forearm ok, no wt bearing with wrist or pushing with wrist Original Note: Left VM with Dr. Mcgovern's office to clarify weight bearing status for left arm.
--- NOTE | 2025-07-11 13:31 | CHAPLAIN ---
Type of Pastoral Visit ___ Initial Visit _x__ Follow-up Visit ___ On-call Visit ___ General Patient Visit ___ Spiritual Assessment ___ Family Conference ___ Bereavement ___ Rapid Response ___ Code Blue ___ Other (describe below) Pastoral Care Referral From _x__ Patient ___ Family ___ Nurse ___ Physician ___ Pilot Plant Research Technician ___ Woodworker ___ Other (describe below) Sacrament/Intervention _x__ Active listening ___ Anointing ___ Cheondoism ___ Bereavement ___ Communion ___ Jo Ann exploration ___ ___ Life review ___ Prayer ___ Reconciliation ___ Sacrament of Sick _x__ Supportive presence ___ Wedding ___ Other (describe below) Pastoral Comments patient was previously seen in [facility] and this was a follow up; pt is working on a crossword puzzle and sitting up in bed; pt reports on the healing process and good care she is receiving; pt denies any needs but that of patience to get through all the healing necessary
[2025-07-11 16:00] VITALS: BP 137/80; PULSE 62; RESP 18; TEMP 36.8; O2SAT 95
[2025-07-11 22:04] VITALS: PULSE 66
[2025-07-12 08:16] VITALS: BP 144/94; PULSE 108; RESP 18; TEMP 36.6; O2SAT 94
[2025-07-12] MEDS: Senna/Docusate Sodium 1 Tablet 2 TABLET PO (08:22)
[2025-07-12 08:24] VITALS: BP 144/94; PULSE 108
[2025-07-12] MEDS: APIXABAN 5 MG TABLET PO ×2 (08:24→22:51)
[2025-07-12] MEDS: Metoprolol(XL)Succ 25 MG Tablet 75 MG PO ×2 (08:24→22:53)
[2025-07-12 10:00] VITALS: PULSE 90; RESP 17; O2SAT 94
[2025-07-12] MEDS: Tuberculin,Purif.prot.deriv. 50 TU/ML Vial 0.1 ML ID (10:05)
[2025-07-12 22:53] VITALS: PULSE 61
[2025-07-13 09:48] VITALS: BP 165/87; PULSE 64; RESP 18; TEMP 36.3; O2SAT 95
[2025-07-13] MEDS: APIXABAN 5 MG TABLET PO ×2 (09:50→22:04)
[2025-07-13 09:51] VITALS: BP 165/87; PULSE 64
[2025-07-13] MEDS: Metoprolol(XL)Succ 25 MG Tablet 75 MG PO ×2 (09:51→22:04)
[2025-07-13] MEDS: Senna/Docusate Sodium 1 Tablet 2 TABLET PO ×2 (09:56→22:01)
[2025-07-13 10:00] VITALS: PULSE 65; RESP 18; O2SAT 95
[2025-07-13 21:55] VITALS: BP 126/79; PULSE 62; RESP 16; O2SAT 95
[2025-07-13 22:04] VITALS: BP 126/79; PULSE 62
[2025-07-14] MEDS: APIXABAN 5 MG TABLET PO ×3 (09:42→21:35)
[2025-07-14 09:43] VITALS: BP 164/90; PULSE 91
[2025-07-14] MEDS: Metoprolol(XL)Succ 25 MG Tablet 75 MG PO ×2 (09:43→21:35)
[2025-07-14] MEDS: Senna/Docusate Sodium 1 Tablet 2 TABLET PO ×2 (09:47→21:38)
[2025-07-14 09:50] VITALS: BP 164/90; PULSE 91; RESP 18; TEMP 36.2; O2SAT 95
[2025-07-14 21:35] VITALS: PULSE 61
--- NOTE | 2025-07-15 10:08 | MDS.RN ---
Information for the MDS was obtained from review of the clinical record, interview of resident, staff, and direct observation of resident?s care.
[2025-07-15 10:37] VITALS: PULSE 67
[2025-07-15] MEDS: Metoprolol(XL)Succ 25 MG Tablet 75 MG PO ×2 (10:37→21:13)
[2025-07-15] MEDS: Senna/Docusate Sodium 1 Tablet 2 TABLET PO ×2 (10:37→21:11)
[2025-07-15 10:42] VITALS: BP 127/78; PULSE 67; RESP 17; TEMP 36.7; O2SAT 95
[2025-07-15 16:00] VITALS: BMI 34.2
[2025-07-15] MEDS: APIXABAN 5 MG TABLET PO (21:11)
[2025-07-15 21:13] VITALS: PULSE 64
[2025-07-16 10:14] VITALS: PULSE 61
[2025-07-16] MEDS: Senna/Docusate Sodium 1 Tablet 2 TABLET PO ×2 (10:14→21:00)
[2025-07-16] MEDS: APIXABAN 5 MG TABLET PO ×2 (10:14→21:01)
[2025-07-16] MEDS: Metoprolol(XL)Succ 25 MG Tablet 75 MG PO ×2 (10:14→21:06)
[2025-07-16 10:21] VITALS: BP 120/81; PULSE 61; RESP 15; TEMP 36.7; O2SAT 93
--- NOTE | 2025-07-16 12:37 | NURSING ---
Pt updated on positive Covid test refused this nurse to update family.
--- NOTE | 2025-07-16 14:20 | CASEMGMT ---
Social Work Insurance issued LCD 07/18, DC 07/19. SW spoke with pt to notify DC date. Educated to appeal rights. Pt verbalized understanding and denied appeal. Pt is agreeable to DC. SW offered HHC vs OP therapy. Pt prefers HHC. SW offered list of skilled HHC agencies within geographical area, INN with insurance, that include quality and resource data via [employer] guide. Pt denied, requesting to use [facility] whom she and her used prior. SW to place referral. SW will also coordinate hemiwalker through [facility] for DC. Dtr to transport pt. - SW sent referral to [facility] PT/OT/TRICE. SW to make referral to APS day of DC as well. Plan: DC home with 07/19, [facility] PT/OT/TRICE Andrade MSW CP BLEACHER OPERATOR
[2025-07-16 20:05] VITALS: BP 153/91; PULSE 61; RESP 16; O2SAT 95
--- NOTE | 2025-07-16 20:14 | PCM.DC.SUM ---
Providers Date of Admission: 07/04/25 Primary Care Physician: ADDISON HENRY DO Reason For Visit: LEFT HIP & ARM FRACTURES Diagnosis Discharge Diagnosis (1) Debility: Status: Acute Code(s): R53.81 - Other malaise (2) Closed fracture of left hip: Status: Inactive Code(s): S72.002A - Fracture of unspecified part of neck of left femur, initial encounter for closed fracture (3) Closed left forearm fracture: Status: Inactive Code(s): S52.92XA - Unspecified fracture of left forearm, initial encounter for closed fracture Qualifiers: Encounter type: initial encounter Qualified Code(s): S52.92XA - Unspecified fracture of left forearm, initial encounter for closed fracture (4) Atrial fibrillation: Status: Acute Code(s): I48.91 - Unspecified atrial fibrillation (5) Essential (primary) hypertension: Status: Acute Code(s): I10 - Essential (primary) hypertension (6) Anxiety: Status: Acute Code(s): F41.9 - Anxiety disorder, unspecified (7) Depression: Status: Acute Code(s): F32.A - Depression, unspecified (8) Osteoarthritis: Status: Acute Code(s): M19.90 - Unspecified osteoarthritis, unspecified site (9) Neuropathic pain: Status: Acute Code(s): M79.2 - Neuralgia and neuritis, unspecified (10) Overactive bladder: Status: Acute Code(s): N32.81 - Overactive bladder (11) Insomnia: Status: Acute Code(s): G47.00 - Insomnia, unspecified Plan 69 year old female with below past medical history hospitalized for left hip fracture, s/p ORIF, left forearm fracture, s/p cast, admitted to TCU with debility, here for rehabilitation, strengthening, prior to discharge home with . Debility - PT/OT. Pain - Tylenol 1000mg q8, Oxycodone 5mg q4 prn pain (4-10), Arthritis Compound Cream 2 clicks bid prn. Bowel - senna/colace 2 tablets bid, Magnesium citrate 300mL daily prn. Adult immunization - Administer pneumonia vaccine, covid vaccine, flu vaccine as appropriate. DVT prophylaxis - Eliquis. Atrial fibrillation - Metoprolol succinate 75mg bid, Diltiazem 120mg daily, Eliquis 5mg bid. Hyperlipidemia - Atorvastatin 40mg qhs. Neuropathic pain - Gabapentin 100mg tid. Hypertension - Metoprolol succinate 75mg bid, Diltiazem 120mg daily, Lisinopril 30mg qam, 10mg qhs. Overactive bladder - Oxybutynin 15mg qhs. The following psychotropic medication was present on admission: Xanax 0.25mg bid. Psychotropic medication therapy is indicated for a diagnosis of: Anxiety. Based on my clinical evaluation, continuation of the medication is necessary at this time. Gradual dose reduction plan (select one): ____ GDR will be attempted. Will monitor patient symptoms and behaviors in response to GDR. __x__ GRD contraindicated. 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 The following psychotropic medication was present on admission: Duloxetine 60mg qhs. Psychotropic medication therapy is indicated for a diagnosis of: Major Depression. Based on my clinical evaluation, continuation of the medication is necessary at this time. Gradual dose reduction plan (select one): ____ GDR will be attempted. Will monitor patient symptoms and behaviors in response to GDR. __x__ GRD contraindicated. Reason contraindicated: stable chronic halfway use. The following psychotropic medication was present on admission: Trazodone 200mg qhs. Psychotropic medication therapy is indicated for a diagnosis of: Insomnia. Based on my clinical evaluation, continuation of the medication is necessary at this time. Gradual dose reduction plan (select one): ____ GDR will be attempted. Will monitor patient symptoms and behaviors in response to GDR. __x__ GRD contraindicated. 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 Medications at Discharge Home Medications alprazolam 0.25 mg tablet 0.25 mg PO BID Anxiety 07/02/25 atorvastatin 40 mg tablet 40 mg PO DAILY Cholesterol 07/02/25 diltiazem HCl 120 mg capsule,extended release 24 hr (Cartia XT) 120 mg PO DAILY Heart 07/02/25 duloxetine 60 mg capsule,delayed release 60 mg PO .HS Mood 07/02/25 gabapentin 100 mg capsule 100 mg PO TID Nerve Pain 07/02/25 metoprolol succinate 25 mg tablet,extended release 24 hr 75 mg PO BID heart rate 07/02/25 oxybutynin chloride 15 mg tablet,extended release 24 hr 15 mg PO .at hs Overactive bladder 07/02/25 trazodone 100 mg tablet 200 mg PO QHS Sleep 07/02/25 apixaban 5 mg tablet (Eliquis) 5 mg PO BID Anticoagulant #0 tabs 07/04/25 acetaminophen 500 mg tablet 1,000 mg (2 x 500 mg) PO Q8 #0 tabs 07/16/25 losartan 100 mg tablet 100 mg PO DAILY 30 days #30 tabs 07/16/25 oxycodone 5 mg tablet 5 mg PO Q4H PRN PRN Pain Score 4-10 7 days #42 tabs 07/16/25 sennosides 8.6 mg-docusate sodium 50 mg tablet (Stimulant Laxative Plus) 2 tab PO BID 30 days #120 tabs 07/16/25 Hospital Course Operations - (See below.) Procedures None Summary of Care Provided Minutes Spent on Discharge: 35 Hospital Course: 69 year old female with below past medical history hospitalized for left hip fracture, s/p ORIF, left forearm fracture, s/p cast, admitted to TCU with debility, here for rehabilitation, strengthening, prior to discharge home with . Discharge home with 07/19/2025, [facility] PT/OT/SW. Physical Exam Const alert General Appearance: cooperative HEENT normocephalic Eyes PERRL and EOMs intact bilaterally Neck supple, no JVD and no carotid bruits Resp normal respiratory effort, normal air movement and clear to auscultation bilaterally Cardio regular rate and regular rhythm GI normal to inspection, nondistended, normoactive bowel sounds, non-tender and non-distended Extremity normal capillary refill Extremity Narrative: Left upper extremity short arm cast. General Extremity: Negative for edema Skin no rashes or lesions noted General Skin Exam: no breakdown Psych affect normal Appearance: appropriate Weight / BMI Weight Weight: 114.305 kg Body Mass Index (BMI) 34.2 ABG / Lab / Microbiology Data 07/11/25 06:35 07/11/25 06:35 D/C Instructions Discharge Activity: Return to Normal Activity, May Shower and Use Walker Weight Bearing Status: Weight bearing as tolerated (Left lower extremity.) Call your doctor if you observe: Fever of 101 or Higher, Inability to urinate, Inability to have a bowel movement, Shortness of breath, Dizziness, Fainting spells, Swelling in the ankles, Chest pain and Uncontrolled pain DC O2, CPAP, BIPAP Needs Home O2 Discharge instructions: No Additional Instructions: Discharge home with 07/19/2025, [facility] PT/OT/SW. Please Follow Up With: Mikhail Mcgovern MD When: As scheduled. Meaningful Use Info Meaningful Use Meaningful Use Diagnoses (Choose all that apply): None applicable Discharge Plan Admission Admit Date/Time: 07/04/25 15:30 Primary Reason for Your Visit: Debility. Attending Provider: Malcolm Smith Chi Primary Care Provider: ADDISON HENRY Instructions Additional Instructions / Restrictions: Discharge home with 07/19/2025, [facility] PT/OT/SW. Discharge Orders/Prescriptions Prescriptions: New sennosides-docusate sodium [Stimulant Laxative Plus] 8.6-50 mg Tablet 2 tab PO BID 30 Days Qty: 120 0RF acetaminophen 500 mg Tablet 1,000 mg PO Q8 Qty: 0 0RF losartan 100 mg Tablet 100 mg PO DAILY 30 Days Qty: 30 0RF oxycodone 5 mg Tablet 5 mg PO Q4H PRN PRN (Reason: Pain Score 4-10) 7 Days Qty: 42 0RF Continued metoprolol succinate 25 mg tablet extended release 24 hr 75 mg PO BID diltiazem HCl [Cartia XT] 120 mg capsule,extended release 24hr 120 mg PO DAILY duloxetine 60 mg capsule,delayed release(DR/EC) 60 mg PO .HS atorvastatin 40 mg tablet 40 mg PO DAILY oxybutynin chloride 15 mg tablet extended release 24hr 15 mg PO .at hs gabapentin 100 mg capsule 100 mg PO TID alprazolam 0.25 mg tablet 0.25 mg PO BID trazodone 100 mg tablet 200 mg PO QHS Eliquis 5 mg Tablet 5 mg PO BID Qty: 0 0RF Rx Instructions: Hold 48 hours prior to left forearm PROPOSED surgery by Dr. Mcgovern as outpatient Discontinued etodolac 500 mg tablet 500 mg PO BID PRN (Reason: pain) sennosides-docusate sodium [Stimulant Laxative Plus] 8.6-50 mg Tablet 2 tab PO BID Qty: 0 0RF acetaminophen 500 mg Tablet 1,000 mg PO Q8 Qty: 0 0RF lisinopril 10 mg Tablet 10 mg PO QHS Qty: 0 0RF lisinopril 10 mg Tablet 30 mg PO DAILY Qty: 0 0RF oxycodone 5 mg Tablet 5 mg PO Q4H PRN PRN (Reason: Pain Score 4-10) Qty: 0 0RF Referrals / Follow Up: ADDISON HENRY DO [Primary Care Provider, Family Practice] - Within 1 Week Referral Note: Transition Care Management appointment. Disposition Disposition (needs filled in before D/C Order can be placed): Home Health Service
[2025-07-16 21:06] VITALS: BP 153/91; PULSE 61
[2025-07-16 21:27] VITALS: PULSE 61; RESP 16; O2SAT 95
[2025-07-17 05:30] VITALS: PULSE 80; RESP 16
[2025-07-17 09:43] VITALS: BP 137/87; PULSE 87; RESP 18; TEMP 36.6; O2SAT 95
[2025-07-17 09:44] VITALS: PULSE 87
[2025-07-17] MEDS: Metoprolol(XL)Succ 25 MG Tablet 75 MG PO ×2 (09:44→20:59)
[2025-07-17] MEDS: Senna/Docusate Sodium 1 Tablet 2 TABLET PO ×2 (09:44→20:56)
[2025-07-17] MEDS: APIXABAN 5 MG TABLET PO ×2 (09:45→20:55)
[2025-07-17 20:55] VITALS: BP 146/84; PULSE 62; RESP 16; O2SAT 94
[2025-07-17 20:59] VITALS: BP 146/84; PULSE 62
[2025-07-18 06:05] LABS: Hematocrit 39.9 % (37-47); Hemoglobin 13.3 g/dL (12.0-15.0); Immature Granulocytes Count 0.000 X10^3/uL (0.0-0.0); Mean Corp Hgb Conc 33.3 g/dL (32-36); Mean Corpuscular Volume 90.5 fL (81-99); Mean Platelet Vol. 11.0 fl (6.2-12.0); NRBC Flagged by Analyzer 0 % (0-5); Platelet Count 160 K/mm3 (150-450); RBC Distribution Width CV 13.1 % (11.6-14.6); RBC Distribution Width SD 42.8 fl (35.1-43.9); Red Blood Count 4.41 M/mm3 (4.2-5.4); White Blood Count 4.7 K/mm3 (4.4-11.0)
[2025-07-18 06:25] LABS: Anion Gap 9 (5-15); BUN 15 mg/dL (4-19); BUN/Creat Ratio 24.0 RATIO (10-20); Calcium,Total 9.2 mg/dL (7.6-11.0); Carbon Dioxide 26.1 mmol/L (21.0-32.0); Chloride 107 mmol/L (98-108); Estimated Creatinine Clearance 91.22 ml/min (50-250); Glucose 97 mg/dL (70-99); Potassium 4.2 mmol/L (3.3-5.1)
[2025-07-18 08:19] VITALS: BP 99/61; PULSE 65; RESP 16; TEMP 36.2; O2SAT 93
[2025-07-18 08:29] VITALS: BP 115/66; PULSE 61
[2025-07-18] MEDS: Senna/Docusate Sodium 1 Tablet 2 TABLET PO ×2 (08:29→21:33)
[2025-07-18] MEDS: APIXABAN 5 MG TABLET PO ×2 (08:29→21:36)
[2025-07-18] MEDS: Metoprolol(XL)Succ 25 MG Tablet 75 MG PO ×2 (08:29→21:32)
--- NOTE | 2025-07-18 10:37 | MDS.RN ---
Pain assessment for MDS complete.
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
[2025-07-18 19:58] VITALS: BP 120/76; PULSE 66
[2025-07-18 21:32] VITALS: PULSE 66
[2025-07-19 10:28] VITALS: BP 128/85; PULSE 57; RESP 16; TEMP 36.3; O2SAT 94
[2025-07-19] MEDS: APIXABAN 5 MG TABLET PO (10:37)
[2025-07-19] MEDS: Senna/Docusate Sodium 1 Tablet 2 TABLET PO (10:37)
[2025-07-19 10:38] VITALS: PULSE 57
[2025-07-19] MEDS: Metoprolol(XL)Succ 25 MG Tablet 75 MG PO (10:38)
--- NOTE | 2025-08-06 13:02 | CASEMGMT ---
This YUNIOR REYNA was informed that the pt and pt's daughter are attempting to utilize travel insurance benefits and are inquiring if Dr Alvarez will sign the form. Form signed by Dr Alvarez. TC to the pt's daughter. Daughter reports that she is the HCPOA and assists this YUNIOR REYNA in filling out the remainder of the form. Encouraged the daughter to call medical records to have the pt's DC summary faxed to the pt's insurance plan. HIM number provided. Daughter states understanding. Signed form e-mailed to the pt's daughter at this time ([email or web address]). Daughter thanks this magnetic tape typewriter operator, and denies any further questions or concerns at this time.
== END 2025-07-19 12:50 | disposition home health service (06) | DRG 560 ==
PROVIDERS: Admitting Provider Family Medicine Geriatric Medicine; PCP Family Medicine; Referring Provider Family Medicine Geriatric Medicine; Visit Provider Family Medicine Geriatric Medicine
DX: S72.002D Fracture of unspecified part of neck of left femur, subsequent encounter for closed fracture with routine healing (principal); I48.20 Chronic atrial fibrillation, unspecified; E78.5 Hyperlipidemia, unspecified; F32.9 Major depressive disorder, single episode, unspecified; G62.9 Polyneuropathy, unspecified; I10 Essential (primary) hypertension; M19.90 Unspecified osteoarthritis, unspecified site; F41.9 Anxiety disorder, unspecified; W19.XXXD Unspecified fall, subsequent encounter; G47.00 Insomnia, unspecified; N32.81 Overactive bladder; Z87.891 Personal history of nicotine dependence; Z79.899 Other long term (current) drug therapy; Z79.01 Long term (current) use of anticoagulants; S52.92XD Unspecified fracture of left forearm, subsequent encounter for closed fracture with routine healing; S52.202D Unspecified fracture of shaft of left ulna, subsequent encounter for closed fracture with routine healing; Z23 Encounter for immunization
CPT/HCPCS: 36415; 71046; 80048; 80061; 85025; 87811; 97110; 97112; 97116; 97162; 97166; 97530; 97535; 97802